=== PATIENT | male | born 1945 | race Caucasian/White ===

== ENCOUNTER 2021-08-14 19:16 | Emergency (ER) | payer OTHER ==
[2021-08-14 20:45] LABS: Urine Blood Trace-lysed (Negative); Urine Glucose Negative (Negative); Urine Protein Trace (Negative); Urine Specific Gravity >=1.030 (1.005-1.030); Urine pH 6.5 (5.0-7.0)
[2021-08-14] MEDS ORDERED: NA CHLORIDE 0.9% 2,000 ML ONE (22:04)
[2021-08-14 22:10] LABS: Absolute Lymphocytes (CBC) 1.4 K/uL (0.7-4.9); Basophils % 0.9 % (0-1.3); Hematocrit 41.2 % (39.6-49.0); Lymphocytes % 31.5 % (15.3-44.8); MPV 7.9 fL (7.6-11.3); Protime INR 1.03; RBC Red Blood Cell Count 4.65 M/uL (4.33-5.43)
[2021-08-14 22:21] LABS: ALT/SGPT 74 U/L (12-78); Alkaline Phosphatase 82 U/L (45-117); BUN Blood Urea Nitrogen 11 mg/dL (7-18); Bicarbonate 27 mmol/L (21-32); Bilirubin Direct < 0.1 mg/dL (0-0.2); Bilirubin Total 0.7 mg/dL (0.2-1.0); Glucose Level 111 mg/dL (74-106); NT PRO-BNP 102 pg/mL (<450); Protein, Total 5.9 g/dL (6.4-8.2); Sodium Level 137 mmol/L (136-145); Troponin (Emerg Dept Use Only) 0.03 ng/mL (0.0-0.045)
[2021-08-14 22:28] LABS: AST/SGOT 49 U/L (15-37); Potassium 3.7 mmol/L (3.5-5.1)
[2021-08-14 22:44] LABS: Blood Morphology Comment NOT SEEN (NOT SEEN); Platelet Estimate ADEQ; White Blood Cell Scan OK (OK)
--- NOTE | 2021-08-14 23:47 | ER ---
Nurse's Notes [facility] Name: Kota Stringer Age: 76 yrs Sex: Male : 1945 Arrival Date: 08/14/2021 Time: 19:32 Bed 14 Private MD: Diagnosis: Syncope Presentation: 08/14 19:33 Chief complaint: Patient states: syncope/diarrhea. Coronavirus screen: Vaccine status: df1 Patient reports receiving the 2nd dose of the covid vaccine. The client reports previous COVID testing was negative. Date of collection: July 2021. Ebola Screen: Patient negative for fever greater than or equal to 101.5 degrees Fahrenheit, and additional compatible Ebola Virus Disease symptoms Patient denies exposure to infectious person. Patient denies travel to an Ebola-affected area in the 21 days before illness onset. Initial Sepsis Screen: Does the patient meet any 2 criteria? No. Patient's initial sepsis screen is negative. Does the patient have a suspected source of infection? No. Patient's initial sepsis screen is negative. Risk Assessment: Do you want to hurt yourself or someone else? Patient reports no desire to harm self or others. Onset of symptoms was August 14, 2021. 19:33 Method Of Arrival: EMS: [facility] df1 19:33 Acuity: EDU 3 df1 19:44 Note Pt arrived EMS c/o syncope today. Was sitting on commode, denies falling. Also df1 diarrhea starting today. Pt recently released from hospital for complications of immunotherapy. 20:46 Note Spouse states pt finished Bactrim for UTI 3 days ago. df1 20:47 Note Pt straight cath for urine. Pt tolerated well. Approx 30 mls returned. df1 Historical: - Allergies: 19:35 PENICILLINS; df1 - Home Meds: 19:35 metoprolol succinate 50 mg oral Tb24 1 tab once daily [Active]; senna-docusate 8.6-50 df1 PO BID twice a day [Active]; aspirin 81 mg Oral chew 1 tab once daily [Active]; magnesium oxide 400 mg magnesium Oral cap 400 mg daily [Active]; Vitamin D3 25 mcg (1,000 unit) oral cap daily [Active]; - PMHx: 19:35 melanoma; adrenal cancer; irregular heart rate; pituitary cancer; immunotherapy; df1 - PSHx: 19:35 cardiac ablation; melanoma removal; df1 - Immunization history:: Adult Immunizations up to date, Client reports receiving the 2nd dose of the Covid vaccine. - Social history:: Smoking status: Patient denies any tobacco usage or history of. Screenin:11 Abuse screen: Denies threats or abuse. Nutritional screening: No deficits noted. df1 Tuberculosis screening: No symptoms or risk factors identified. Fall Risk IV access (20 points). Ambulatory Aid- None/Bed Rest/Nurse Assist (0 pts). Gait- Weak (10 pts.). Mental Status- Oriented to own ability (0 pts). Assessment: 20:06 General: Appears ill, Behavior is calm, cooperative, drowsy. Pain: Denies pain. Neuro: df1 Reports a syncopal episode weakness in generalized weakness. Respiratory: Airway is patent Respiratory effort is even, unlabored, Breath sounds are clear bilaterally. GI: Bowel sounds present X 4 quads. Reports diarrhea. : No deficits noted. EENT: No deficits noted. Musculoskeletal: No deficits noted. Vital Signs: 19:33 BP 123 / 87; Pulse 86; Resp 18; Temp 98.1; Pulse Ox 98% on R/A; Weight 77.11 kg; Height df1 5 ft. 9 in. (175.26 cm); Pain 0/10; 20:02 BP 128 / 67; Pulse 88; Resp 18; Pulse Ox 98% on R/A; df1 20:52 BP 122 / 71; Pulse 81; Resp 18; Pulse Ox 97% on R/A; df1 21:58 BP 124 / 71; Pulse 82; Resp 18; Pulse Ox 99% on R/A; df1 23:27 BP 132 / 64; Pulse 78; Resp 18; Pulse Ox 98% ; df1 23:57 BP 141 / 71; Pulse 84; Resp 18; Pulse Ox 99% on R/A; df1 19:33 Body Mass Index 25.10 (77.11 kg, 175.26 cm) df1 ED Course: 19:32 Patient arrived in ED. df1 19:35 Triage completed. df1 20:02 Emelyn Rader is Primary Nurse. df1 20:11 Patient has correct armband on for positive identification. Placed in gown. Bed in low df1 position. Call light in reach. Side rails up X 1. 20:12 Arm band placed on right wrist. Emesis basin given. df1 20:47 Inserted saline lock: 20 gauge in right forearm, using aseptic technique. df1 21:18 Uriel Olivas MD is Attending Physician. pkl 21:52 Lactate Sent. sj1 21:54 Basic Metabolic Panel Sent. df1 21:54 XRAY Chest (1 view) Sent. df1 22:06 XRAY Chest (1 view) In Process Unspecified. EDMS 22:41 CT Head Brain wo Cont In Process Unspecified. EDMS 08/15 00:36 No provider procedures requiring assistance completed. IV discontinued, intact. df1 Administered Medications: 08/14 21:39 Drug: NS 0.9% 1000 ml Route: IV; Rate: 125 ml/hr; Site: right forearm; sj1 21:39 Drug: NS 0.9% 1000 ml Route: IV; Rate: 1000 ml; Site: right forearm; sj1 Outcome: 23:46 Discharge ordered by . pkl 08/15 00:36 Discharged to home via wheelchair. df1 Condition: stable Discharge instructions given to patient, family, Instructed on discharge instructions, follow up and referral plans. Demonstrated understanding of instructions, follow-up care. 00:37 Patient left the ED. df1 Signatures: Dispatcher [employer] EDNC Uriel Olivas MD MD pkl Emelyn Rader df1 Mamta Palm, RN RN sj1 Corrections: (The following items were deleted from the chart) 08/14 20:46 19:35 Home Meds: pantoprazole 40 mg oral TbEC 1 tab once daily; df1 df1
--- NOTE | 2021-08-14 23:47 | EDPHYS ---
Physician Documentation [facility] Name: Kota Stringer Age: 76 yrs Sex: Male : 1945 Arrival Date: 08/14/2021 Time: 19:32 Bed 14 Private MD: ED Physician Uriel Olivas HPI: 08/14 21:36 This 76 yrs old Male presents to ER via EMS with unknown complaint. pkl 21:36 The patient has experienced syncope, became unresponsive. Onset: The symptoms/episode pkl began/occurred just prior to arrival. Associated injury: The patient did not suffer any apparent associated injury. Associated signs and symptoms: Pertinent positives: weakness. Historical: - Allergies: 19:35 PENICILLINS; df1 - Home Meds: 19:35 metoprolol succinate 50 mg oral Tb24 1 tab once daily [Active]; senna-docusate 8.6-50 df1 PO BID twice a day [Active]; aspirin 81 mg Oral chew 1 tab once daily [Active]; magnesium oxide 400 mg magnesium Oral cap 400 mg daily [Active]; Vitamin D3 25 mcg (1,000 unit) oral cap daily [Active]; - PMHx: 19:35 melanoma; adrenal cancer; irregular heart rate; pituitary cancer; immunotherapy; df1 - PSHx: 19:35 cardiac ablation; melanoma removal; df1 - Immunization history:: Adult Immunizations up to date, Client reports receiving the 2nd dose of the Covid vaccine. - Social history:: Smoking status: Patient denies any tobacco usage or history of. ROS: 21:41 Eyes: Negative for injury, pain, redness, and discharge, ENT: Negative for injury, pkl pain, and discharge, Neck: Negative for injury, pain, and swelling, Cardiovascular: Negative for chest pain, palpitations, and edema, Respiratory: Negative for shortness of breath, cough, wheezing, and pleuritic chest pain. 21:41 Abdomen/GI: Positive for diarrhea. 21:41 Back: Negative for acute changes. 21:41 : Negative for urinary symptoms. 21:41 MS/extremity: Negative for acute changes, injury or acute deformity. 21:41 Skin: Negative for rash. 21:41 Neuro: Positive for syncope. Exam: 21:41 Abdomen/GI: Bowel sounds: normal, Palpation: abdomen is soft and non-tender, in all pkl quadrants. 21:41 Head/Face: Normocephalic, atraumatic. Eyes: Pupils equal round and reactive to light, extra-ocular motions intact. Lids and lashes normal. Conjunctiva and sclera are non-icteric and not injected. Cornea within normal limits. Periorbital areas with no swelling, redness, or edema. ENT: Nares patent. No nasal discharge, no septal abnormalities noted. Tympanic membranes are normal and external auditory canals are clear. Oropharynx with no redness, swelling, or masses, exudates, or evidence of obstruction, uvula midline. Mucous membranes moist. Neck: Trachea midline, no thyromegaly or masses palpated, and no cervical lymphadenopathy. Supple, full range of motion without nuchal rigidity, or vertebral point tenderness. No Meningismus. Chest/axilla: Normal chest wall appearance and motion. Nontender with no deformity. No lesions are appreciated. Cardiovascular: Regular rate and rhythm with a normal S1 and S2. No gallops, murmurs, or rubs. Normal PMI, no JVD. No pulse deficits. Respiratory: Lungs have equal breath sounds bilaterally, clear to auscultation and percussion. No rales, rhonchi or wheezes noted. No increased work of breathing, no retractions or nasal flaring. Abdomen/GI: Soft, non-tender, with normal bowel sounds. No distension or tympany. No guarding or rebound. No evidence of tenderness throughout. Back: No spinal tenderness. No costovertebral tenderness. Full range of motion. Skin: Warm, dry with normal turgor. Normal color with no rashes, no lesions, and no evidence of cellulitis. MS/ Extremity: Pulses equal, no cyanosis. Neurovascular intact. Full, normal range of motion. Neuro: Awake and alert, GCS 15, oriented to person, place, time, and situation. Cranial nerves II-XII grossly intact. Motor strength 5/5 in all extremities. Sensory grossly intact. Cerebellar exam normal. Normal gait. Vital Signs: 19:33 BP 123 / 87; Pulse 86; Resp 18; Temp 98.1; Pulse Ox 98% on R/A; Weight 77.11 kg; Height df1 5 ft. 9 in. (175.26 cm); Pain 0/10; 20:02 BP 128 / 67; Pulse 88; Resp 18; Pulse Ox 98% on R/A; df1 20:52 BP 122 / 71; Pulse 81; Resp 18; Pulse Ox 97% on R/A; df1 21:58 BP 124 / 71; Pulse 82; Resp 18; Pulse Ox 99% on R/A; df1 23:27 BP 132 / 64; Pulse 78; Resp 18; Pulse Ox 98% ; df1 23:57 BP 141 / 71; Pulse 84; Resp 18; Pulse Ox 99% on R/A; df1 19:33 Body Mass Index 25.10 (77.11 kg, 175.26 cm) df1 MDM: 21:18 Patient medically screened. pkl 23:41 Data reviewed: vital signs, nurses notes, lab test result(s), EKG, radiologic studies, pkl CT scan, plain films. ED course: Patient feeling better. Discussed lab, EKG and imaging studies with patient. Advised to follow up with PCP in 2 to 3 days. Return if necessary. Patient understood instruction. 08/14 20:45 Order name: Urine Dipstick-Ancillary; Complete Time: 23:34 EDMS 08/14 21:27 Order name: Basic Metabolic Panel pkl 08/14 21:27 Order name: CBC with Diff; Complete Time: 23:34 pkl 08/14 21:27 Order name: LFT's; Complete Time: 23:34 pkl 08/14 21:27 Order name: Magnesium; Complete Time: 23:34 pkl 08/14 21:27 Order name: NT PRO-BNP; Complete Time: 23:34 pkl 08/14 21:27 Order name: PT-INR; Complete Time: 23:34 pkl 08/14 21:27 Order name: Troponin (emerg Dept Use Only); Complete Time: 23:34 pkl 08/14 21:27 Order name: XRAY Chest (1 view) pkl 08/14 21:28 Order name: Basic Metabolic Panel; Complete Time: 23:34 EDMS 08/14 21:29 Order name: Lactate; Complete Time: 23:34 pkl 08/14 21:32 Order name: CT Head Brain wo Cont pkl 08/14 22:16 Order name: CBC Smear Scan; Complete Time: 23:34 EDMS 08/14 20:53 Order name: Urine Dipstick-Ancillary (obtain specimen); Complete Time: 20:53 df1 08/14 21:27 Order name: EKG; Complete Time: 21:28 pkl 08/14 21:27 Order name: Cardiac monitoring; Complete Time: 21:54 pkl 08/14 21:27 Order name: EKG - Nurse/Tech; Complete Time: 21:54 pkl 08/14 21:27 Order name: IV Saline Lock; Complete Time: 21:54 pkl 08/14 21:27 Order name: Labs collected and sent; Complete Time: 21:54 pkl 08/14 21:27 Order name: O2 Per Protocol; Complete Time: 21:54 pkl 08/14 21:27 Order name: O2 Sat Monitoring; Complete Time: 21:54 pkl Administered Medications: 21:39 Drug: NS 0.9% 1000 ml Route: IV; Rate: 125 ml/hr; Site: right forearm; sj1 21:39 Drug: NS 0.9% 1000 ml Route: IV; Rate: 1000 ml; Site: right forearm; sj1 Disposition Summary: 08/14/21 23:46 Discharge Ordered Location: Home pkl Problem: new pkl Symptoms: have improved pkl Condition: Stable pkl Diagnosis - Syncope pkl Followup: pkl - With: Private Physician - When: 2 - 3 days - Reason: Re-evaluation by your physician Forms: - Medication Reconciliation Form pkl - Thank You Letter pkl - Antibiotic Education pkl - Prescription Opioid Use pkl Signatures: Dispatcher [employer] EDUriel Hubbard MD MD pkl Emelyn Rader df1 Mamta aPlm RN RN sj1 Corrections: (The following items were deleted from the chart) 20:46 19:35 Home Meds: pantoprazole 40 mg oral TbEC 1 tab once daily; df1 df1
[2021-08-15 00:41] VITALS: TEMP 98.1
[2021-08-15 00:48] VITALS: BP 141/71; O2SAT 99
--- NOTE | 2021-08-15 11:52 | RAD REPORT ---
EXAM DESCRIPTION: RAD - Chest Single View - 08/14/2021 10:05 pm CLINICAL HISTORY: syncope Chest pain. COMPARISON: No comparisons FINDINGS: Portable technique limits examination quality. Small bilateral pleural effusions are seen. Subtle interstitial opacities slightly greater on the rig ht may indicate mild infection or pulmonary edema. The heart is normal in size. No displaced fracture s.
--- NOTE | 2021-08-15 22:48 | RAD REPORT ---
EXAM DESCRIPTION: CT Head/Brain Without Contrast CLINICAL HISTORY: Syncope, hypertension COMPARISON: None. TECHNIQUE: Head/brain axial images acquired without contrast. Coronal and sagittal reformats created . Exam performed according to departmental dose-optimization program which includes automated exposur e control, adjustment of mA and/or kV according to patient size, and/or use of iterative reconstructi on technique. FINDINGS: No midline shift, mass effect, intracranial hemorrhage, or hydrocephalus. CSF spaces appear overall mildly enlarged likely representing age-appropriate cerebral volume loss. Small right frontal sinus osteoma. Mastoid air cells clear. No skull fracture or significant skull lesion. Calcified atherosclerotic intracranial internal carotid and vertebral arteries. IMPRESSION: No CT evidence of acute intracranial abnormality. Electronically signed by: Buster Ponce MD 08/14/2021 11:46 PM CDT Due to temporary technical issues with the PACS/Fluency reporting system, reports are being signed by the in house radiologists without review as a courtesy to insure prompt reporting. The interpreting radiologist is fully responsible for the content of the report.
== END 2021-08-15 00:37 | disposition home or self-care (01) ==
LOC: ER 19:16
DX: R55 Syncope and collapse (principal); Z88.0 Allergy status to penicillin
CPT/HCPCS: 93005; 85025; 80048; 36415; 83735; 85610; 80076; 83605; 81003; 84484; 83880; 70450; 71045; 99284; J7030

== ENCOUNTER 2021-08-20 17:00 | Emergency (ER) | payer OTHER ==
[2021-08-20 18:11] LABS: Urine Blood 1+ (Negative); Urine Glucose Negative (Negative); Urine Protein Negative (Negative)
--- NOTE | 2021-08-20 19:38 | ER ---
Nurse's Notes [facility] Name: Kota Stringer Age: 76 yrs Sex: Male : 1945 Arrival Date: 08/20/2021 Time: 17:04 Bed 26 Private MD: Diagnosis: UTI/ Urinary tract infection, site not specified;Dysuria Presentation: 08/20 17:36 Chief complaint: Patient states: he has pain on the end of his penis. patient states ap3 pain is constant. Pain began yesterday 08/19/2021. Coronavirus screen: At this time, the client does not indicate any symptoms associated with coronavirus-19. Ebola Screen: No symptoms or risks identified at this time. Initial Sepsis Screen: Does the patient meet any 2 criteria? No. Patient's initial sepsis screen is negative. Does the patient have a suspected source of infection? No. Patient's initial sepsis screen is negative. Risk Assessment: Do you want to hurt yourself or someone else? Patient reports no desire to harm self or others. Onset of symptoms was August 19, 2021. 17:36 Method Of Arrival: Ambulatory ap3 17:36 Acuity: EDU 3 ap3 Triage Assessment: 17:40 General: Appears in no apparent distress. Behavior is calm, cooperative. Pain: ap3 Complains of pain in head of penis Pain currently is 6 out of 10 on a pain scale. Quality of pain is described as burning. Neuro: Level of Consciousness is awake, alert, obeys commands, Oriented to person, place, time, situation, Speech is normal. Cardiovascular: Patient's skin is warm and dry. Respiratory: Airway is patent. : Reports pain with urination, and constant pain on the head of the penis. Denies discharge. Historical: - Allergies: 17:39 PENICILLINS; ap3 - Home Meds: 17:39 metoprolol succinate 50 mg Oral Tb24 1 tab once daily [Active]; ap3 - PMHx: 17:39 adrenal cancer; immunotherapy; Irregular heart rate; melanoma; pituitary cancer; ap3 - PSHx: 17:39 Cardiac Ablation; melanoma removal; ap3 - Immunization history:: Client reports receiving the 2nd dose of the Covid vaccine. - Social history:: Smoking status: Patient denies any tobacco usage or history of. Screenin:41 Abuse screen: Denies threats or abuse. Nutritional screening: No deficits noted. ap3 Tuberculosis screening: No symptoms or risk factors identified. 18:14 Fall Risk None identified. ld1 Assessment: 18:14 General: Appears in no apparent distress. uncomfortable, Behavior is calm, cooperative, ld1 appropriate for age. Pain: Complains of pain in groin Pain does not radiate. Pain currently is 6 out of 10 on a pain scale. at worst was 8 out of 10 on a pain scale. Quality of pain is described as burning, throbbing, Pain began 2-3 days ago. Is continuous. Neuro: Level of Consciousness is awake, alert, obeys commands, Oriented to person, place, time, situation. Cardiovascular: Capillary refill < 3 seconds Patient's skin is warm and dry. Respiratory: Airway is patent Respiratory effort is even, unlabored, Respiratory pattern is regular, symmetrical. GI: Abdomen is flat, non-distended. : Reports burning with urination, inability to void, pain urgency. EENT: No signs and/or symptoms were reported regarding the EENT system. Derm: No signs and/or symptoms reported regarding the dermatologic system. Musculoskeletal: No signs and/or symptoms reported regarding the musculoskeletal system. 19:20 General: Appears uncomfortable, Behavior is calm, cooperative. General: Bladder scan ld1 completed with 324 ml residual reported 2 hours post void.. Pain: Complains of pain in head of penis Pain currently is 7 out of 10 on a pain scale. 19:30 Reassessment: No changes from previously documented assessment. Voided 325 ml slightly ld1 cloudy urine; meds given as ordered; drinking water with no n/v. Vital Signs: 17:36 BP 134 / 86 RA Sitting (auto/reg); Pulse 83; Resp 19; Temp 98.5(TE); Pulse Ox 100% on ap3 R/A; Weight 75.3 kg; Height 5 ft. 9 in. (175.26 cm); Pain 6/10; 18:14 BP 146 / 72; Pulse 84; Resp 18; Pulse Ox 100% on R/A; Pain 6/10; ld1 19:40 BP 151 / 79; Pulse 78; Resp 18; Temp 97.7; Pulse Ox 100% on R/A; ld1 17:36 Body Mass Index 24.51 (75.30 kg, 175.26 cm) ap3 ED Course: 17:04 Patient arrived in ED. mr 17:39 Triage completed. ap3 17:42 Arm band placed on right wrist. ap3 17:52 Jareth Bello MD is Attending Physician. whitney 18:10 Urine Culture Sent. ld1 18:14 Patient has correct armband on for positive identification. Placed in gown. Bed in low ld1 position. Call light in reach. Side rails up X2. Pulse ox on. NIBP on. Door closed. Noise minimized. Warm blanket given. 18:14 No provider procedures requiring assistance completed. ld1 19:25 Felicia Villegas, RN is Primary Nurse. ld1 19:37 Ladarius Foster MD is Referral Physician. [facility] 19:40 Patient did not have IV access during this emergency room visit. ld1 Administered Medications: 19:30 Drug: Cipro (ciprofloxacin) 500 mg Route: PO; ld1 19:40 Follow up: Response: No adverse reaction ld1 19:30 Drug: [place] (HYDROcodone-acetaminophen) 10 mg-325 mg 1 tabs Route: PO; ld1 19:40 Follow up: Urine output 325 ml; Response: No adverse reaction ld1 19:30 Drug: Flomax (tamsulosin) 0.4 mg Route: PO; ld1 19:40 Follow up: Response: No adverse reaction ld1 Output: 19:40 Urine: 325ml; Total: 325ml. ld1 Outcome: 19:37 Discharge ordered by . [facility] 19:40 Discharged to home via wheelchair. ld1 19:40 Condition: stable 19:40 Discharge instructions given to patient, significant other, Instructed on discharge instructions, follow up and referral plans. medication usage, Demonstrated understanding of instructions, follow-up care, medications, Prescriptions given X 3. 20:06 Patient left the ED. ld1 Signatures: Jareth Bello MD MD cha Rivera, Kim LantiguaYana RN RN ap3 Felicia Villegas, NATE RN ld1
--- NOTE | 2021-08-20 19:38 | EDPHYS ---
Physician Documentation [facility] Name: Kota Stringer Age: 76 yrs Sex: Male : 1945 Arrival Date: 08/20/2021 Time: 17:04 Bed 26 Private MD: ARON Physician Jareth Bello HPI: 08/20 19:06 This 76 yrs old Male presents to ER via Ambulatory with complaints of Urinary whitney Problem. 19:06 The patient presents with urinary symptoms, dysuria, urinary frequency. Onset: The whitney symptoms/episode began/occurred 2 day(s) ago. Modifying factors: The symptoms are alleviated by nothing, the symptoms are aggravated by urinating. Associated signs and symptoms: The patient has no apparent associated signs or symptoms. Severity of symptoms: At their worst the symptoms were mild, in the emergency department the symptoms are unchanged. The patient has experienced similar episodes in the past, a few times. Historical: - Allergies: 17:39 PENICILLINS; ap3 - Home Meds: 17:39 metoprolol succinate 50 mg Oral Tb24 1 tab once daily [Active]; ap3 - PMHx: 17:39 adrenal cancer; immunotherapy; Irregular heart rate; melanoma; pituitary cancer; ap3 - PSHx: 17:39 Cardiac Ablation; melanoma removal; ap3 - Immunization history:: Client reports receiving the 2nd dose of the Covid vaccine. - Social history:: Smoking status: Patient denies any tobacco usage or history of. ROS: 19:07 Constitutional: Negative for fever, chills, and weight loss, Eyes: Negative for injury, whitney pain, redness, and discharge, ENT: Negative for injury, pain, and discharge, Neck: Negative for injury, pain, and swelling, Cardiovascular: Negative for chest pain, palpitations, and edema, Respiratory: Negative for shortness of breath, cough, wheezing, and pleuritic chest pain, Abdomen/GI: Negative for abdominal pain, nausea, vomiting, diarrhea, and constipation, Back: Negative for injury and pain, MS/Extremity: Negative for injury and deformity, Skin: Negative for injury, rash, and discoloration, Neuro: Negative for headache, weakness, numbness, tingling, and seizure, Psych: Negative for depression, anxiety, suicide ideation, homicidal ideation, and hallucinations, Allergy/Immunology: Negative for hives, rash, and allergies, Endocrine: Negative for neck swelling, polydipsia, polyuria, polyphagia, and marked weight changes, Hematologic/Lymphatic: Negative for swollen nodes, abnormal bleeding, and unusual bruising. 19:07 : Positive for urinary symptoms, urinary frequency, small amounts, hematuria, burning with urination, difficulty urinating. Exam: 19:07 Constitutional: This is a well developed, well nourished patient who is awake, alert, whitney and in no acute distress. Head/Face: Normocephalic, atraumatic. Eyes: Pupils equal round and reactive to light, extra-ocular motions intact. Lids and lashes normal. Conjunctiva and sclera are non-icteric and not injected. Cornea within normal limits. Periorbital areas with no swelling, redness, or edema. ENT: Nares patent. No nasal discharge, no septal abnormalities noted. Tympanic membranes are normal and external auditory canals are clear. Oropharynx with no redness, swelling, or masses, exudates, or evidence of obstruction, uvula midline. Mucous membranes moist. Neck: Trachea midline, no thyromegaly or masses palpated, and no cervical lymphadenopathy. Supple, full range of motion without nuchal rigidity, or vertebral point tenderness. No Meningismus. Chest/axilla: Normal chest wall appearance and motion. Nontender with no deformity. No lesions are appreciated. Cardiovascular: Regular rate and rhythm with a normal S1 and S2. No gallops, murmurs, or rubs. Normal PMI, no JVD. No pulse deficits. Respiratory: Lungs have equal breath sounds bilaterally, clear to auscultation and percussion. No rales, rhonchi or wheezes noted. No increased work of breathing, no retractions or nasal flaring. Abdomen/GI: Soft, non-tender, with normal bowel sounds. No distension or tympany. No guarding or rebound. No evidence of tenderness throughout. Back: No spinal tenderness. No costovertebral tenderness. Full range of motion. Skin: Warm, dry with normal turgor. Normal color with no rashes, no lesions, and no evidence of cellulitis. MS/ Extremity: Pulses equal, no cyanosis. Neurovascular intact. Full, normal range of motion. Neuro: Awake and alert, GCS 15, oriented to person, place, time, and situation. Cranial nerves II-XII grossly intact. Motor strength 5/5 in all extremities. Sensory grossly intact. Cerebellar exam normal. Normal gait. Psych: Awake, alert, with orientation to person, place and time. Behavior, mood, and affect are within normal limits. 19:07 : CVA tenderness, is absent, Male external genitalia: normal, Bladder: is normal, Sexual behavior: the patient is not sexually active. Vital Signs: 17:36 BP 134 / 86 RA Sitting (auto/reg); Pulse 83; Resp 19; Temp 98.5(TE); Pulse Ox 100% on ap3 R/A; Weight 75.3 kg; Height 5 ft. 9 in. (175.26 cm); Pain 6/10; 18:14 BP 146 / 72; Pulse 84; Resp 18; Pulse Ox 100% on R/A; Pain 6/10; ld1 19:40 BP 151 / 79; Pulse 78; Resp 18; Temp 97.7; Pulse Ox 100% on R/A; ld1 17:36 Body Mass Index 24.51 (75.30 kg, 175.26 cm) ap3 MDM: 17:52 Patient medically screened. [facility] 19:13 Data reviewed: vital signs, nurses notes, lab test result(s), urinalysis, bacteruria. [facility] 08/20 17:53 Order name: Urine Culture [facility] 08/20 18:10 Order name: Urine Dipstick-Ancillary; Complete Time: 18:57 [facility] 08/20 17:53 Order name: Urine Dipstick-Ancillary (obtain specimen); Complete Time: 18:10 [facility] 08/20 19:05 Order name: PO challenge; Complete Time: 19:34 [facility] 08/20 19:05 Order name: Bladder Scanner; Complete Time: 19:34 [facility] Administered Medications: 19:30 Drug: Cipro (ciprofloxacin) 500 mg Route: PO; ld1 19:40 Follow up: Response: No adverse reaction ld1 19:30 Drug: [place] (HYDROcodone-acetaminophen) 10 mg-325 mg 1 tabs Route: PO; ld1 19:40 Follow up: Urine output 325 ml; Response: No adverse reaction ld1 19:30 Drug: Flomax (tamsulosin) 0.4 mg Route: PO; ld1 19:40 Follow up: Response: No adverse reaction ld1 Disposition Summary: 08/20/21 19:37 Discharge Ordered Location: Home [facility] Problem: new [facility] Symptoms: have improved [facility] Condition: Stable [facility] Diagnosis - UTI/ Urinary tract infection, site not specified [facility] - Dysuria [facility] Followup: whitney - With: Private Physician - When: 2 - 3 days - Reason: Recheck today's complaints, Continuance of care, Re-evaluation by your physician Followup: whitney - With: - When: 2 - 3 days - Reason: Recheck today's complaints, Re-evaluation by your physician Discharge Instructions: - Discharge Summary Sheet [facility] - Dysuria [facility] - Urinary Tract Infection, Adult [facility] - Urinary Tract Infection, Adult, [id number] [facility] Forms: - Medication Reconciliation Form [facility] - Thank You Letter [facility] - Antibiotic Education [facility] - Prescription Opioid Use [facility] Prescriptions: - tamsulosin 0.4 mg Oral capsule - take 1 capsule by ORAL route once daily 1/2 hour following the same meal each [facility] day; 20 capsule; Refills: 0, Product Selection Permitted - Cipro 250 mg Oral Tablet - take 1 tablet by ORAL route every 12 hours; 20 tablet; Refills: 0, Product [facility] Selection Permitted - Tylenol-Codeine #3 300 mg-30 mg Oral - take 2 tablet by ORAL route every 6 hours; 15 tablet; Refills: 0, Product [facility] Selection Permitted Signatures: Dispatcher [employer] Jareth Houser MD MD cha Prokisch, Amanda RN RN ap3 Felicia Villegas RN RN ld1
[2021-08-20] MEDS ORDERED: CIPROFLOXACIN HCL 500 MG TAB ONE (19:53)
[2021-08-20] MEDS ORDERED: TAMSULOSIN 0.4 MG SR CAP ONE (19:54)
[2021-08-20] MEDS ORDERED: HYDROCODONE/APAP 10/325 TAB ONE (19:55)
[2021-08-20 20:10] VITALS: O2SAT 100
[2021-08-20 20:13] VITALS: BP 151/79; TEMP 97.7
== END 2021-08-20 20:06 | disposition home or self-care (01) ==
LOC: ER 17:00
DX: N39.0 Urinary tract infection, site not specified (principal); Z88.0 Allergy status to penicillin; Z85.89 Personal history of malignant neoplasm of other organs and systems
CPT/HCPCS: 81003; 87077; 87086; 87088; 87186; 99284

== ENCOUNTER 2021-08-24 18:34 | Emergency (ER) | payer OTHER ==
[2021-08-24 20:30] LABS: Basophils % 0.9 % (0-1.3); Hematocrit 38.5 % (39.6-49.0); MPV 7.4 fL (7.6-11.3); RBC Red Blood Cell Count 4.39 M/uL (4.33-5.43)
[2021-08-24 20:31] LABS: ALT/SGPT 55 U/L (12-78); AST/SGOT 47 U/L (15-37); Alkaline Phosphatase 73 U/L (45-117); BUN Blood Urea Nitrogen 5 mg/dL (7-18); Bicarbonate 30 mmol/L (21-32); Bilirubin Direct 0.2 mg/dL (0-0.2); Creatine Phosphokinase 522 U/L (39-308); Glucose Level 103 mg/dL (74-106); Magnesium 1.7 mg/dL (1.8-2.4); NT PRO-BNP 165 pg/mL (<450); Potassium 3.4 mmol/L (3.5-5.1); Protime INR 1.12; Sodium Level 136 mmol/L (136-145); Troponin (Emerg Dept Use Only) 0.02 ng/mL (0.0-0.045)
[2021-08-24 20:58] LABS: Urine Blood Negative (Negative); Urine Glucose Negative (Negative); Urine Protein Negative (Negative)
--- NOTE | 2021-08-24 21:19 | RAD REPORT ---
EXAM DESCRIPTION: CT - CTHCSPWOC - 08/24/2021 8:59 pm CLINICAL HISTORY: fall;Pain COMPARISON: No comparisons TECHNIQUE: Axial 5 mm thick images of the head were obtained. Axial 2 mm thick images of the cervic al spine were obtained with sagittal and coronal reconstruction images generated and reviewed. All CT scans are performed using dose optimization technique as appropriate and may include automated exposure control or mA/KV adjustment according to patient size. FINDINGS: No intracranial hemorrhage, mass, edema or acute intracranial finding. No suspicion for ac [place] infarction. No cortical edema or sulcal effacement seen. Mild to moderate atrophy is present mild chronic ischemic change. Ventricles are in proportion. Dense arterial tree calcifications are presen t. Mastoid air cells and paranasal sinuses are clear. No globe or orbit abnormality seen. Cervical body height and alignment are normal. C5-6 disc space narrowing present. Endplate spurring c hanges are present multiple levels. Prominent facet joint degenerative changes are present. Uncoverte bral joint hypertrophy causes mild bilateral bony foraminal stenosis at C3-4. C4-5 and C5-6 bony fora aaron stenosis also present. No fracture or acute bony abnormality. Central canal detail is inherent ly limited. No paraspinal mass or hematoma. IMPRESSION: Negative CT head examination for acute finding. Negative CT cervical spine examination for acute finding. Prominent cervical spine degenerative wang ges are present as detailed.
--- NOTE | 2021-08-24 21:23 | RAD REPORT ---
EXAM DESCRIPTION: CT - Abdomen Pelvis W Contrast - 08/24/2021 9:03 pm CLINICAL HISTORY: Constipation;Abd pain COMPARISON: No comparisons TECHNIQUE: Biphasic, helical CT imaging of the abdomen and pelvis was performed following 100 ml non -ionic IV contrast. No oral contrast administered. All CT scans are performed using dose optimization technique as appropriate and may include automated exposure control or mA/KV adjustment according to patient size. FINDINGS: No suspicious findings in the lung bases. The liver, spleen, and pancreas show no suspicious findings. Gallbladder and biliary tree are also wi thout suspicious finding. There is marked dilatation of the pelvis and moderately severe dilatation of the calices of the right collecting system. Right ureter is not dilated. 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 Strictu re at the UPJ is possible. No obstructing calculi. Renal parenchymal enhancement pattern is symmetric indicating no significant obstruction from the UPJ finding. No left-sided hydronephrosis. No pyelone phritis or acute parenchymal process. Partially filled urinary bladder shows no acute finding. No adr enal abnormalities. No dilated bowel loops or bowel wall thickening. Appendix is normal. Prominent diverticulosis is pres ent. There is distention of the rectum by retained stool. No free air, free fluid or inflammatory stranding. No hernia, mass or bulky lymphadenopathy. Bony degenerative changes are present. No acute bone finding identified. IMPRESSION: Contrast enhanced CT abdomen and pelvis showing no acute or emergent finding. Patient has pronounced dilatation of the pelvis and calices on the right with no ureter dilatation. 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
[2021-08-24 21:24] LABS: Urine Bacteria <20 /HPF (NONE SEEN); Urine RBC NONE SEEN /HPF (NONE SEEN)
[2021-08-24] MEDS ORDERED: NA CHLORIDE 0.9% 500 ML ONE ×2 (21:25→22:43)
--- NOTE | 2021-08-24 21:30 | RAD REPORT ---
EXAM DESCRIPTION: RAD - Chest Single View - 08/24/2021 8:56 pm CLINICAL HISTORY: general weakness COMPARISON: Portable August 14 TECHNIQUE: AP portable chest image was obtained 08/24/2021 8:56 pm . FINDINGS: Lungs are clear. Atelectasis present in each lung base. Lung parenchymal findings are not significantly different from comparison. Heart and vasculature are normal. No measurable pleural effu jose and no pneumothorax. No acute bony abnormality seen. No acute aortic findings suspected. IMPRESSION: No acute cardiopulmonary process. No significant change from comparison study.
[2021-08-24 22:19] LABS: Blood Morphology Comment NOT SEEN (NOT SEEN); Platelet Estimate ADEQ
[2021-08-24] MEDS ORDERED: POTASSIUM 25 MEQ EFFERV TAB ONE (22:26)
[2021-08-24] MEDS ORDERED: Magnesium Sulfate 2gm IVPB 2 G/50 ML BAG IV ONE (22:26)
--- NOTE | 2021-08-24 23:14 | ER ---
Nurse's Notes [facility] Name: Kota Stringer Age: 76 yrs Sex: Male : 1945 Arrival Date: 08/24/2021 Time: 18:36 Bed 15 Private MD: Diagnosis: Fall on same level, unspecified;Cervicalgia;Constipation Presentation: 08/24 18:52 Chief complaint: Patient states: "I am constipated, so my was wheeling me out to ld1 the car and my feet go caught up and I fell out of the wheelchair and hit my head." Denies LOC, denies taking blood thinners. Coronavirus screen: At this time, the client does not indicate any symptoms associated with coronavirus-19. Ebola Screen: No symptoms or risks identified at this time. Initial Sepsis Screen: Does the patient meet any 2 criteria? No. Patient's initial sepsis screen is negative. Does the patient have a suspected source of infection? No. Patient's initial sepsis screen is negative. Risk Assessment: Do you want to hurt yourself or someone else? Patient reports no desire to harm self or others. Onset of symptoms was August 24, 2021. 18:52 Method Of Arrival: Wheelchair ld1 18:52 Acuity: EDU 3 ld1 Triage Assessment: 18:54 General: Appears in no apparent distress. uncomfortable, Behavior is calm, cooperative, ld1 appropriate for age. Pain: Complains of pain in occipital area Pain does not radiate. Pain currently is 10 out of 10 on a pain scale. Quality of pain is described as throbbing, Pain began 1 hour ago. Is continuous. Pain:. EENT: No signs and/or symptoms were reported regarding the EENT system. Neuro: Level of Consciousness is awake, alert, obeys commands, Oriented to person, place, time, situation. Cardiovascular: Capillary refill < 3 seconds Patient's skin is warm and dry. Respiratory: Airway is patent Respiratory effort is even, unlabored, Respiratory pattern is regular, symmetrical. GI: Abdomen is flat, non-distended, Reports constipation. : No signs and/or symptoms were reported regarding the genitourinary system. Derm: No signs and/or symptoms reported regarding the dermatologic system. Musculoskeletal: No signs and/or symptoms reported regarding the musculoskeletal system. Historical: - Allergies: 18:54 PENICILLINS; ld1 - Home Meds: 18:54 metoprolol succinate 50 mg Oral Tb24 1 tab once daily [Active]; ld1 - PMHx: 18:54 adrenal cancer; immunotherapy; Irregular heart rate; melanoma; pituitary cancer; ld1 - PSHx: 18:54 Cardiac Ablation; melanoma removal; ld1 - Immunization history:: Adult Immunizations up to date, Client reports receiving the 2nd dose of the Covid vaccine. - Social history:: Smoking status: Patient denies any tobacco usage or history of. Screenin:23 Abuse screen: Denies threats or abuse. Denies injuries from another. Nutritional ms4 screening: No deficits noted. Tuberculosis screening: No symptoms or risk factors identified. Fall Risk Fall in past 12 months (25 points). No secondary diagnosis (0 pts). No IV (0 pts). Ambulatory Aid- Crutches/Cane/Walker (15 pts). Gait- Normal/Bed Rest/Wheelchair (0 pts) Mental Status- Oriented to own ability (0 pts). Total Busby Fall Scale indicates Low Risk Score (25-44 pts). Fall prevention measures have been instituted. Placed close to Nursing Station. Assessment: 19:21 Reassessment: Patient appears in no apparent distress at this time. No changes from ms4 previously documented assessment. Patient and/or family updated on plan of care and expected duration. Pain level reassessed. Patient is alert, oriented x 3, equal unlabored respirations, skin warm/dry/pink. General: Appears in no apparent distress. Behavior is calm, cooperative, appropriate for age. Pain: Complains of pain in scalp and occipital area. Neuro: No deficits noted. Cardiovascular: No deficits noted. Respiratory: No deficits noted. GI: Bowel sounds present X 4 quads. Abd is soft and non tender X 4 quads. Parent/caregiver reports the patient having constipation. 19:24 Reassessment: c-collar placed on patient due to patient c/o neck pain. ms4 22:54 Reassessment: Patient appears in no apparent distress at this time. No changes from ms4 previously documented assessment. Patient and/or family updated on plan of care and expected duration. Pain level reassessed. Patient is alert, oriented x 3, equal unlabored respirations, skin warm/dry/pink. Vital Signs: 18:52 BP 139 / 87; Pulse 100; Resp 18; Temp 98.3(O); Pulse Ox 97% on R/A; Weight 73.94 kg; ld1 Height 5 ft. 9 in. (175.26 cm); Pain 10/10; 20:04 BP 150 / 87; Pulse 89; Resp 16; Pulse Ox 98% on R/A; Pain 0/10; ms4 22:52 BP 158 / 91; Pulse 89; Resp 18; Temp 98.1(O); Pulse Ox 98% on R/A; Pain 0/10; ms4 23:29 BP 147 / 89; Pulse 80; Resp 18; Pulse Ox 98% ; Pain 0/10; ms4 18:52 Body Mass Index 24.07 (73.94 kg, 175.26 cm) ld1 ED Course: 18:36 Patient arrived in ED. ds1 18:54 Triage completed. ld1 18:54 Arm band placed on right wrist. ld1 18:58 Jareth Bryant PA is PHCP. cp 18:58 Derek Linares MD is Attending Physician. cp 19:24 No provider procedures requiring assistance completed. ms4 20:01 Basic Metabolic Panel Sent. ms4 20:01 CBC with Automated Diff Sent. ms4 20:01 Liver (Hepatic) Function Sent. ms4 20:01 CK Sent. ms4 20:01 Blood Culture Adult (2) Sent. ms4 20:01 Procalcitonin Sent. ms4 20:01 Lactate Sent. ms4 20:01 Basic Metabolic Panel Sent. ms4 20:01 CBC with Diff Sent. ms4 20:01 LFT's Sent. ms4 20:01 Magnesium Sent. ms4 20:02 NT PRO-BNP Sent. ms4 20:02 PT-INR Sent. ms4 20:02 Troponin (emerg Dept Use Only) Sent. ms4 20:10 Inserted saline lock: 20 gauge in right antecubital area, using aseptic technique. ms4 Blood collected. 20:56 XRAY Chest (1 view) In Process Unspecified. EDMS 20:59 CT Head C Spine In Process Unspecified. EDMS 21:03 CT Abd/Pelvis - IV Contrast Only In Process Unspecified. EDMS 21:52 Jareth Bello MD is Attending Physician. cp 23:29 Patient has correct armband on for positive identification. ms4 23:29 IV discontinued, intact, bleeding controlled. ms4 Administered Medications: 21:18 Drug: NS 0.9% 500 ml Route: IV; Rate: 500 ml/hr; Site: right antecubital; ms4 22:16 Drug: Magnesium Sulfate 1 grams Route: IVPB; Infused Over: 1 hrs; Site: right ms4 antecubital; 22:16 Drug: Potassium Effervescent Tablet 50 mEq Route: PO; ms4 22:17 Drug: NS 0.9% 500 ml Route: IV; Rate: bolus; Site: right antecubital; ms4 Outcome: 23:13 Discharge ordered by . cp 23:29 Discharged to home via wheelchair. ms4 23:29 Condition: stable 23:29 Discharge instructions given to patient, Instructed on discharge instructions, follow up and referral plans. Demonstrated understanding of instructions, follow-up care, medications, Prescriptions given X 1. 23:30 Patient left the ED. ms4 Signatures: Dispatcher [employer] EDID Kira Garcia ds1 Jareth Bryant PA PA cp Felicia Villegas RN RN ld1 Francesca Donato RN RN ms4
--- NOTE | 2021-08-24 23:14 | EDPHYS ---
Physician Documentation [facility] Name: Kota Stringer Age: 76 yrs Sex: Male : 1945 Arrival Date: 08/24/2021 Time: 18:36 Bed 15 Private MD: ED Physician Jareth [facility]ello HPI: 08/24 19:35 This 76 yrs old Male presents to ER via Wheelchair with complaints of cp Constipation, Fall Injury. 19:35 The patient presents with abdominal pain that is diffuse, constipation. Onset: The cp symptoms/episode began/occurred today, reports last bowel movement was 6 days ago. Associated signs and symptoms: Pertinent negatives: blood in stools, chest pain, shortness of breath, vomiting. 19:35 reports patient sustained fall while sitting on walker causing him to strike back cp of head on grassy surface. Patient was attempted to get into vehicle to come to ED to be seen for constipation. reports patient has had increasing general weakness. Patient has history of stage 4 melanoma and was unable to do immunotherapy treatment due to allergic reaction. Patient is being treated at [facility]. Historical: - Allergies: 18:54 PENICILLINS; ld1 - Home Meds: 18:54 metoprolol succinate 50 mg Oral Tb24 1 tab once daily [Active]; ld1 - PMHx: 18:54 adrenal cancer; immunotherapy; Irregular heart rate; melanoma; pituitary cancer; ld1 - PSHx: 18:54 Cardiac Ablation; melanoma removal; ld1 - Immunization history:: Adult Immunizations up to date, Client reports receiving the 2nd dose of the Covid vaccine. - Social history:: Smoking status: Patient denies any tobacco usage or history of. ROS: 19:40 Constitutional: Negative for body aches, chills, fever, poor PO intake. cp 19:40 Eyes: Negative for injury, pain, redness, and discharge. cp 19:40 ENT: Negative for ear pain, sore throat, difficulty swallowing, difficulty handling secretions. 19:40 Neck: Positive for pain with movement, tenderness. 19:40 Cardiovascular: Negative for chest pain, edema, palpitations. 19:40 Respiratory: Negative for cough, shortness of breath, wheezing. 19:40 Abdomen/GI: Positive for abdominal pain, constipation, Negative for vomiting, diarrhea, black/tarry stool, rectal bleeding. 19:40 Back: Negative for pain at rest, pain with movement. 19:40 : Negative for urinary symptoms. 19:40 Neuro: Positive for general weakness, Negative for altered mental status, dizziness, headache, loss of consciousness, syncope. 19:40 All other systems are negative. Exam: 19:45 Constitutional: The patient appears in no acute distress, alert, awake, cp non-diaphoretic, non-toxic, well developed, well nourished. 19:45 Head/Face: Normocephalic, atraumatic. cp 19:45 Eyes: Periorbital structures: appear normal, Pupils: equal, round, and reactive to light and accomodation, Extraocular movements: intact throughout, Conjunctiva: normal, no exudate, no injection, Sclera: no appreciated abnormality, Lids and lashes: appear normal, bilaterally. 19:45 ENT: External ear(s): are unremarkable, Nose: is normal, Mouth: Lips: moist, Oral mucosa: pink and intact, moist, Posterior pharynx: Airway: no evidence of obstruction, patent. 19:45 Neck: C-spine: C-collar placed in ED, vertebral tenderness, that is mild, appreciated at C6 and C7, crepitus, is not appreciated. 19:45 Chest/axilla: Inspection: normal, Palpation: is normal, no crepitus, no tenderness. 19:45 Cardiovascular: Rate: tachycardic, Rhythm: regular, Edema: is not appreciated, JVD: is not appreciated. 19:45 Respiratory: the patient does not display signs of respiratory distress, Respirations: normal, no use of accessory muscles, no retractions, labored breathing, is not present, Breath sounds: are clear throughout, no decreased breath sounds, no stridor, no wheezing. 19:45 Abdomen/GI: Inspection: abdomen appears normal, Bowel sounds: active, all quadrants, Palpation: soft, in all quadrants, mild abdominal tenderness, in all quadrants, rebound tenderness, is not appreciated, voluntary guarding, is not appreciated, involuntary guarding, is not appreciated. 19:45 Back: vertebral tenderness, is not appreciated. 19:45 Musculoskeletal/extremity: Exam is negative for decreased range of motion, deformity, injury. 19:45 Neuro: Orientation: to person, place \T\ time. Mentation: is normal, Motor: moves all fours, strength is normal, Sensation: is normal. 20:02 ECG was reviewed by the Attending Physician. cp Vital Signs: 18:52 BP 139 / 87; Pulse 100; Resp 18; Temp 98.3(O); Pulse Ox 97% on R/A; Weight 73.94 kg; ld1 Height 5 ft. 9 in. (175.26 cm); Pain 10/10; 20:04 BP 150 / 87; Pulse 89; Resp 16; Pulse Ox 98% on R/A; Pain 0/10; ms4 22:52 BP 158 / 91; Pulse 89; Resp 18; Temp 98.1(O); Pulse Ox 98% on R/A; Pain 0/10; ms4 23:29 BP 147 / 89; Pulse 80; Resp 18; Pulse Ox 98% ; Pain 0/10; ms4 18:52 Body Mass Index 24.07 (73.94 kg, 175.26 cm) ld1 MDM: 19:04 Patient medically screened. cp 20:00 Differential diagnosis: closed head injury, contusion, fracture, laceration, multiple cp trauma. 23:12 Data reviewed: vital signs, nurses notes, lab test result(s), EKG, radiologic studies, cp CT scan, plain films. 23:12 Test interpretation: by ED physician or midlevel provider: ECG, plain radiologic cp studies. Counseling: I had a detailed discussion with the patient and/or guardian regarding: the historical points, exam findings, and any diagnostic results supporting the discharge/admit diagnosis, lab results, radiology results, the need for outpatient follow up, for definitive care, oncology, to return to the emergency department if symptoms worsen or persist or if there are any questions or concerns that arise at home. Response to treatment: the patient's symptoms have markedly improved after treatment, patient is well hydrated. VSS. Radiology studies negative for acute trauma. Patient reports symptoms improved. Will discharge to home for continued monitoring. 08/24 19:30 Order name: Basic Metabolic Panel cp 08/24 19:30 Order name: CBC with Diff cp 08/24 19:30 Order name: LFT's cp 08/24 19:30 Order name: Magnesium; Complete Time: 20:59 cp 08/24 20:59 Interpretation: Abnormal: MG 1.7. cp 08/24 19:30 Order name: NT PRO-BNP; Complete Time: 20:59 cp 08/24 19:30 Order name: PT-INR; Complete Time: 20:59 cp 08/24 22:30 Interpretation: Abnormal: PT 12.9; Reviewed. cp 08/24 19:30 Order name: Troponin (emerg Dept Use Only); Complete Time: 20:59 cp 08/24 19:30 Order name: Lactate; Complete Time: 20:59 cp 08/24 19:30 Order name: Urine Microscopic Only; Complete Time: 21:48 cp 08/24 22:30 Interpretation: Reviewed. cp 08/24 19:30 Order name: Procalcitonin; Complete Time: 20:59 cp 08/24 19:30 Order name: Blood Culture Adult (2) cp 08/24 19:30 Order name: CK; Complete Time: 20:59 cp 08/24 21:02 Interpretation: Abnormal: CPK 522. cp 08/24 19:30 Order name: Basic Metabolic Panel; Complete Time: 20:59 EDMS 08/24 20:59 Interpretation: Normal except: K 3.4; CL 97; BUN 5. cp 08/24 19:30 Order name: CBC with Automated Diff; Complete Time: 22:29 EDMS 08/24 21:02 Interpretation: Normal except: HGB 13.5; HCT 38.5; MPV 7.4; MN% 14.6. 08/24 19:30 Order name: CT Head C Spine; Complete Time: 21:48 cp 08/24 21:50 Interpretation: Reviewed report. 08/24 19:30 Order name: XRAY Chest (1 view); Complete Time: 21:48 08/24 21:50 Interpretation: Report review. cp 08/24 19:30 Order name: EKG; Complete Time: 19:31 cp 08/24 19:30 Order name: Cardiac monitoring; Complete Time: 19:46 cp 08/24 19:30 Order name: EKG - Nurse/Tech; Complete Time: 20:01 cp 08/24 19:30 Order name: IV Saline Lock; Complete Time: 19:46 cp 08/24 19:30 Order name: Labs collected and sent; Complete Time: 19:46 cp 08/24 19:30 Order name: O2 Per Protocol; Complete Time: 19:46 cp 08/24 19:30 Order name: CT Abd/Pelvis - IV Contrast Only; Complete Time: 21:48 cp 08/24 21:51 Interpretation: Report reviewed. cp 08/24 19:30 Order name: Liver (Hepatic) Function; Complete Time: 20:59 EDMS 08/24 21:02 Interpretation: Normal except: AST 47; TP 6.0; ALB 3.0; A/G 1.0. cp 08/24 20:36 Order name: Manual Differential; Complete Time: 22:29 EDMS 08/24 22:30 Interpretation: Reviewed. cp 08/24 20:58 Order name: Urine Dipstick-Ancillary; Complete Time: 20:59 EDMS 08/24 19:30 Order name: O2 Sat Monitoring; Complete Time: 19:46 cp 08/24 19:30 Order name: Urine Dipstick-Ancillary (obtain specimen); Complete Time: 20:54 cp EC:02 Rate is 89 beats/min. Rhythm is regular. MO interval is normal. QRS interval is cp prolonged at 118 msec. QT interval is normal. T waves are Inverted in leads III, aVR. Interpreted by me. Reviewed by me. Administered Medications: 21:18 Drug: NS 0.9% 500 ml Route: IV; Rate: 500 ml/hr; Site: right antecubital; ms4 22:16 Drug: Magnesium Sulfate 1 grams Route: IVPB; Infused Over: 1 hrs; Site: right ms4 antecubital; 22:16 Drug: Potassium Effervescent Tablet 50 mEq Route: PO; ms4 22:17 Drug: NS 0.9% 500 ml Route: IV; Rate: bolus; Site: right antecubital; ms4 Disposition Summary: 08/24/21 23:13 Discharge Ordered Location: Home cp Problem: new cp Symptoms: have improved cp Condition: Stable cp Diagnosis - Fall on same level, unspecified cp - Cervicalgia cp - Constipation cp Followup: cp - With: Private Physician - When: 2 - 3 days - Reason: Recheck today's complaints Discharge Instructions: - Discharge Summary Sheet cp - Constipation, Adult cp - Musculoskeletal Pain cp - Neck Exercises cp Forms: - Medication Reconciliation Form cp - Thank You Letter cp - Antibiotic Education cp - Prescription Opioid Use cp Prescriptions: - Miralax 17 gram Oral powder in packet - take 1 packet by ORAL route once daily As needed; 20 packet; Refills: 0, cp Product Selection Permitted Addendum: 08/26/2021 09:59 Co-signature as Attending Physician, Jareth [facility]ello MD I agree with the assessment and c nieves plan of care. Signatures: Dispatcher [employer] Jareth Houesr MD MD cha Page, Corey, PA PA cp Dibbern, Lauren, RN RN ld1 Francesca Donato RN RN ms4 Corrections: (The following items were deleted from the chart) 08/24 20:54 19:30 Evette waters. dilip ms4
[2021-08-24 23:38] VITALS: O2SAT 98
[2021-08-24 23:39] VITALS: TEMP 98.1
[2021-08-24 23:40] VITALS: BP 147/89
--- NOTE | 2021-08-25 16:44 | EKG ---
Test Date: 2021-08-24 Test Time: 19:56:28 Operator [employer]: MEASUREMENT RESULTS: Intervals: Rate: 89 [place]: 158 QRSD: 118 QT: 384 QTc: 467 Slaughter: P: 32 [place]: 158 QRS: -16 T: 3 INTERPRETIVE STATEMENTS: Normal sinus rhythm Incomplete right bundle branch block Nonspecific ST and T wave abnormality Prolonged QT Abnormal ECG Compared to ECG 08/14/2021 19:26:55 Incomplete right bundle-branch block now present ST (T wave) deviation now present Prolonged QT interval now present Atrial premature complex(es) no longer present Right bundle-branch block no longer present Electronically Signed On 08-25-21 16:41:10 CDT by Luis Coronel
== END 2021-08-24 23:30 | disposition home or self-care (01) ==
LOC: ER 18:34
DX: M54.2 Cervicalgia (principal); K59.00 Constipation, unspecified; W18.30XA Fall on same level, unspecified, initial encounter; Y93.89 Activity, other specified; Z85.89 Personal history of malignant neoplasm of other organs and systems; Z88.0 Allergy status to penicillin
CPT/HCPCS: 93005; 87040; 85025; 80048; 36415; 83735; 82550; 85610; 80076; 83605; 84484; 84145; 83880; 70450; 72125; 74177; 71045; 96374; 99284; Q9967; J3475; J7040 ×2; 81003; 81015

== ENCOUNTER 2023-04-13 08:28 | Day surgery (SDC) | payer OTHER ==
[2023-04-13] MEDS ORDERED: Ringers Lactate 1,000 ML IV ONE (08:52)
[2023-04-13] MEDS ORDERED: DEXMEDETOMIDINE HCL 200 MCG/2 ML VIAL ONE (10:24)
[2023-04-13] MEDS ORDERED: MIDAZOLAM HCL 2 MG/2 ML INJ ONE (10:28)
[2023-04-13] MEDS ORDERED: LIDOCAINE 1% MPF 30 ML VIAL ONE (10:30)
[2023-04-13] MEDS ORDERED: propofoL 200 MG/20 ML VIAL IV ONE (10:30)
[2023-04-13] MEDS ORDERED: GLUCAGON 1 MG/VIAL ONE (10:40)
[2023-04-13] MEDS ORDERED: GENTAMICIN SULF 80 MG/2ML INJ ONE (10:40)
[2023-04-13 11:53] VITALS: BP 113/62; TEMP 97; O2SAT 100
--- NOTE | 2023-04-13 13:14 | RAD REPORT ---
EXAM DESCRIPTION: RAD - Fluoroscopy <1 Hour - 04/13/2023 1:04 pm CLINICAL HISTORY: ERCP STENT REMOVAL COMPARISON: No comparisons FINDINGS: Fluoroscopy time: 156 seconds.
== END 2023-04-13 12:02 | disposition home or self-care (01) ==
LOC: OR 08:28
PROVIDERS: ATTEND Internal Medicine Gastroenterology
PROC: BF10YZZ Fluoroscopy of Bile Ducts using Other Contrast (ICD-10-PCS; 2023-04-13)
PROC: 0FPB8DZ Removal of Intraluminal Device from Hepatobiliary Duct, Via Natural or Artificial Opening Endoscopic (ICD-10-PCS; principal; 2023-04-13 10:45)
DX: K80.40 Calculus of bile duct with cholecystitis, unspecified, without obstruction (principal)
CPT/HCPCS: 88300; 43275; J1610; J2704; J2001; J1580; J7120; 76000; J2250

== ENCOUNTER 2024-04-03 15:38 | Emergency (ER) | payer OTHER ==
--- OUTSIDE RECORDS SUMMARY | 2024-04-03 15:44 | XMS REPORT | Continuity of Care Document ---
Author Name Unknown Address [address] [facility] [address] [place] [address] [facility] thconnect Address [address] [facility] [address] [place] [address] Care Team Providers Care Bowling Alley Attendant Name Role Phone Ann KERN, Lulu Primary Care Physic wendy SYSTEM, PROVIDER NOT IN Attending Clinician Unav ailable June Kent Attending Clinician Unavailable [id number] Attending Clinician Unavailable Niki Loja Anavella Attending Cli nician Unavailable DYLAN CORONADO Attending Clinician Unavailable RASHAWN NICOLE Attending Clinician Unavail able GHAZALA OCONNOR Attending Clinician Unavailable GO SALAS Attending Clinician UnavailWINNIE Brooks Attending Clinician Unavaila LIAM Lopez Attending Clinician Unavailable ALVAREZ WAHL Attending Clinician Unavailable MALU CRUZ Attending Clinician Unavailable MEG VERONICA Attending Clinician Unavailable DORINA MORRIS Attending Clinician Unavailable CHLOÉ SALDANA Attending Clinician Unavailable FABIEN DONNELLY Attending Clinician Unavaila ricardo Doctor Unassigned, [place] Attending Clinician U navailable PRATIBHA BILLS Attending Clinician UnavailVIANNEY Diaz Attending Clinician Unavailable CON PHAM Attending Clinician Un available REHANA, ROSA Attending Clinician Unavailable YOKO RENNER Attending Clinician Unavail able KADIE AHUJA Attending Clinician Unavailable MADDISON REDMOND Attending Clinician Unavailab ASHLEY Allred Attending Clinician Unavailable RASHAWN CANCHOLA Attending Clinician UnavailSAYDA Perales Attending Clinician Unavailable ONEL ASKEW Attending Clinician Unavailab RASHAWN Nogueira Attending Clinician Unavailab DEBORAH Wilkerson Attending Clinician UnavailDENEEN Villa Attending Clinician Unavailable GORDO CARCAMO Attending Clinician UnavailKETTY Ness Attending Clinician Unavailable [id number] Admitting Clinician Unavailable Edvin Loja Anav Admitting Clinician QUAN Hylton Admitting Clinician Unavailable RASHAWN NICOLE Admitting Clinician Unavail able Payers Payer Name Policy Type Policy Number Effective Date Expirati on Date Source [facility] [id number] AETM AETM [id number] [employer]ETNA MEDICARE PPO [id number] 2022 00:00:00 MEDICARE PART A AND B [id number] 2009 00:00:00 AETNA HMO [id number] 2000 00:00:00 AETNA [id number] [facility] Problems Condition Name Condition Details Condition Category Status Onset Date Resolution Date Last Treatment Date Treating Clinician Comments Source Vasovagal syncope Vasovagal syncope Disease Active 03-27 00:00: 00 [facility] Syncope Syncope Disease Active 03-27 00:00: 00 [facility] [id number] Decreased appetite Problem [facility] [id number] GERD without esophagiti s Problem [facility] [id number] Mild episode of recurrent major depressive disorder Problem [facility] [id number] Constipati on, unspecifie d constipati on type Problem [facility] [id number] 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 Problem [facility] [id number] Malignant melanoma of skin, unspecifie d Problem [facility] [id number] Mixed hyperlipid emia Problem [facility] [id number] Essential (primary) hypertensi on Problem [facility] Age-relate d osteoporos is Age-relate d osteoporos is without current pathologic al fracture Problem [facility] Allergies, Adverse Reactions, Alerts Allergy Name Allergy Type Status Severity Reaction(s) Onset Date Inactive Date Treating Clinician Comments Source [facility] Active Other 0 04-15 00:00: 00 [facility] Active Other 0 04-15 00:00: 00 [facility] Active Other 0 04-15 00:00: 00 Anderso [facility] Active Other 0 04-15 00:00: 00 Anderso [facility] Active Other 0 04-15 00:00: 00 Anderso [facility] Active Other 0 04-15 00:00: 00 Anderso n [facility] Active Other 0 04-15 00:00: 00 Anderso n [facility] Active Other 0 04-15 00:00: 00 Anderso [facility] Active Other 0 04-15 00:00: 00 Anderso [facility] Active Other 0 04-15 00:00: 00 Anderso n [facility] Active Other 0 04-15 00:00: 00 Anderso [facility] Active Other 0 04-15 00:00: 00 Anderso n [facility] Active Other 0 04-15 00:00: 00 Anderso n [facility] Active Other 0 04-15 00:00: 00 MD Anderso n [facility] Active Other 0 04-15 00:00: 00 MD Anderso n [facility] Active Other 0 04-15 00:00: 00 MD Anderso n [facility] Active Other 0 04-15 00:00: 00 MD Anderso n [facility] Active Other 0 04-15 00:00: 00 MD Anderso n [facility] Active Other 0 04-15 00:00: 00 MD Anderso n [facility] Active Other 0 6-09 00:00: 00 MD Anderso n [facility] Active Other 2023-0 6- 00:00: 00 MD Anderso n [facility] Active Other 2023-0 6- 00:00: 00 MD Anderso n [facility] Active Other 2023-0 6 00:00: 00 MD Anderso n [facility] Active Other 2023-0 6 00:00: 00 MD Anderso n [facility] Active Other 2023-0 6 00:00: 00 MD Anderso n [facility] Active Other 2023-0 6 00:00: 00 MD Anderso n [facility] Active Other 2023-0 6 00:00: 00 MD Anderso n [facility] Active Other 2023-0 6 00:00: 00 MD Anderso n [facility] Active Other 2023-0 6 00:00: 00 MD Anderso n [facility] Active Other 2023-0 6 00:00: 00 MD Anderso n [facility] Active Other 2023-0 6 00:00: 00 MD Anderso n [facility] Active Other 2023-0 6 00:00: 00 MD Anderso n [facility] Active Other 2023-0 6 00:00: 00 MD Anderso n [facility] Active Other 2023-0 6 00:00: 00 MD Anderso n [facility] Active Other 2023-0 6 00:00: 00 MD Anderso n [facility] Active Other 2023-0 6 00:00: 00 MD Anderso n [facility] Active Other 2023-0 6 00:00: 00 MD Anderso n [facility] Active Other 2023-0 6 00:00: 00 MD Anderso n [facility] Active Other 2023-0 6 00:00: 00 MD Anderso n [facility] Active Other 2023-0 6 00:00: 00 MD Anderso n [facility] Active Other 2023-0 6 00:00: 00 MD Anderso n [facility] Active Other 2023-0 6 00:00: 00 MD Anderso n [facility] Active Other 2023-0 6 00:00: 00 MD Anderso n [facility] Active Other 2023-0 6 00:00: 00 MD Anderso n [facility] Active Other 2023-0 6 00:00: 00 MD Anderso n [facility] Active Other 2023-0 6 00:00: 00 MD Anderso n [facility] Active Other 2023-0 6 00:00: 00 MD Anderso n [facility] Active Other 202-0 6 00:00: 00 MD Anderso n [facility] Active Other 2023-0 6 00:00: 00 MD Anderso n [facility] Active Other 2022-0 6 00:00: 00 MD Anderso n [facility] Active Other 2022-0 6 00:00: 00 MD Anderso n [facility] Active Other 2022-0 6 00:00: 00 MD Anderso n [facility] Active Other 2022-0 6 00:00: 00 MD Anderso n [facility] Active Other 202-0 6 00:00: 00 MD Anderso n [facility] Active Other 2022-0 6 00:00: 00 MD Anderso n [facility] Active Other 2022-0 6 00:00: 00 MD Anderso n [facility] Active Other 2023-0 6 00:00: 00 MD Anderso n [facility] Active Other 2022-0 6 00:00: 00 MD Anderso n [facility] Active Other 2023-0 6 00:00: 00 MD Anderso n [facility] Active Other 2023-0 6 00:00: 00 MD Anderso n [facility] Active Other 2023-0 6 00:00: 00 MD Anderso n [facility] Active Other 2023-0 - 00:00: 00 MD Anderso n [facility] Active Other 2023-0 6 00:00: 00 MD Anderso n [facility] Active Other 2023-0 6 00:00: 00 MD Anderso n [facility] Active Other 2023-0 6 00:00: 00 MD Anderso n [facility] Active Other 2023-0 6 00:00: 00 MD Anderso n [facility] Active Other 2023-0 6 00:00: 00 MD Anderso n [facility] Active Other 2023-0 6 00:00: 00 MD Anderso n [facility] Active Other 2023-0 6 00:00: 00 MD Anderso n [facility] Active Other 2023-0 6 00:00: 00 MD Anderso n [facility] Active Other 2023-0 6 00:00: 00 MD Anderso n [facility] Active Other 2023-0 6 00:00: 00 MD Anderso n [facility] Active Other 2023-0 6 00:00: 00 MD Anderso n [facility] Active Other 2023-0 6 00:00: 00 MD Anderso n [facility] Active Other 2023-0 6 00:00: 00 MD Anderso n [facility] Active Other 2023-0 6 00:00: 00 MD Anderso n [facility] Active Other 2023-0 6 00:00: 00 MD Anderso n [facility] Active Other 2023-0 6 00:00: 00 MD Anderso n [facility] Active Other 2023-0 6 00:00: 00 MD Anderso n [facility] Active Other 2023-0 6 00:00: 00 MD Anderso n [facility] Active Other 2023-0 6 00:00: 00 MD Anderso n [facility] Active Other 2023-0 6 00:00: 00 MD Anderso n [facility] Active Other 2023-0 6 00:00: 00 Androbina n [facility] Active Other 0 6 00:00: 00 Androbina n [facility] Active Other 0 6 00:00: 00 Androbina santo [facility] Active Other 0 6 00:00: 00 Androbina n [facility] Active Other 0 6 00:00: 00 Androbina n [facility] Active Other 0 04-15 00:00: 00 Androbina n [facility] Active Other 0 04-15 00:00: 00 Androbina n [facility] Active Other 0 04-15 00:00: 00 Androbina santo [facility] Active Other 0 04-15 00:00: 00 Andangyo n [facility] Active Other 0 04-15 00:00: 00 Androbina santo [facility] Active Other 0 04-15 00:00: 00 Androbina santo [facility] Propens[facility] ty to adverse reaction s Active Rash 2016-0 5-21 00:00: 00 Ha [facility] Active High Rash 2000-0 4-11 00:00: 00 Androbina n [facility] Active High Rash 2000-0 4-11 00:00: 00 Anderso n [facility] Active High Rash 2000-0 4-11 00:00: 00 Anderso n [facility] Active High Rash 2000-0 4-11 00:00: 00 Andangyo n [facility] Active High Rash 2000-0 4-11 00:00: 00 Anderso n [facility] Active High Rash 2000-0 4-11 00:00: 00 Anderso n [facility] Active High Rash 2000-0 4-11 00:00: 00 Andangyo n [facility] Active High Rash 2000-0 4-11 00:00: 00 Anderso n [facility] Active High Rash 2000-0 4-11 00:00: 00 Anderso n [facility] Active High Rash 2000-0 4-11 00:00: 00 Anderso n [facility] Active High Rash 2000-0 4-11 00:00: 00 Anderso n [facility] Active High Rash 2000-0 4-11 00:00: 00 Anderso n [facility] Active High Rash 2000-0 4-11 00:00: 00 Anderso n [facility] Active High Rash 2000-0 4-11 00:00: 00 Anderso n [facility] Active High Rash 2000-0 4-11 00:00: 00 Anderso n [facility] Active High Rash 2000-0 4-11 00:00: 00 Anderso n [facility] Active High Rash 2000-0 4-11 00:00: 00 Anderso n [facility] Active High Rash 2000-0 4-11 00:00: 00 Anderso n [facility] Active High Rash 2000-0 4-11 00:00: 00 Anderso n [facility] Active High Rash 2000-0 4-11 00:00: 00 Anderso n [facility] Active High Rash 2000-0 4-11 00:00: 00 Anderso n [facility] Active High Rash 2000-0 4-11 00:00: 00 Anderso n [facility] Active High Rash 2000-0 4-11 00:00: 00 Anderso n [facility] Active High Rash 2000-0 4-11 00:00: 00 Anderso n [facility] Active High Rash 2000-0 4-11 00:00: 00 Anderso n [facility] Active High Rash 2000-0 4-11 00:00: 00 Anderso n [facility] Active High Rash 2000-0 4-11 00:00: 00 Anderso n [facility] Active High Rash 2000-0 4-11 00:00: 00 Anderso n [facility] Active High Rash 2000-0 4-11 00:00: 00 Anderso n [facility] Active High Rash 2000-0 4-11 00:00: 00 Anderso n [facility] Active High Rash 2000-0 4-11 00:00: 00 Anderso n [facility] Active High Rash 2000-0 4-11 00:00: 00 Anderso n [facility] Active High Rash 2000-0 4-11 00:00: 00 Anderso n [facility] Active High Rash 2000-0 4-11 00:00: 00 Anderso n [facility] Active High Rash 2000-0 4-11 00:00: 00 Anderso n [facility] Active High Rash 2000-0 4-11 00:00: 00 Anderso n [facility] Active High Rash 2000-0 4-11 00:00: 00 Anderso n [facility] Active High Rash 2000-0 4-11 00:00: 00 Anderso n [facility] Active High Rash 2000-0 4-11 00:00: 00 Anderso n [facility] Active High Rash 2000-0 4-11 00:00: 00 Anderso n [facility] Active High Rash 2000-0 4-11 00:00: 00 Anderso n [facility] Active High Rash 2000-0 4-11 00:00: 00 Anderso n [facility] Active High Rash 2000-0 4-11 00:00: 00 Anderso n [facility] Active High Rash 2000-0 4-11 00:00: 00 Anderso n [facility] Active High Rash 2000-0 4-11 00:00: 00 Anderso n [facility] Active High Rash 2000-0 4-11 00:00: 00 Anderso n [facility] Active High Rash 2000-0 4-11 00:00: 00 Anderso n [facility] Active High Rash 2000-0 4-11 00:00: 00 Anderso n [facility] Active High Rash 2000-0 4-11 00:00: 00 Anderso n [facility] Active High Rash 2000-0 4-11 00:00: 00 Anderso n [facility] Active High Rash 2000-0 4-11 00:00: 00 Anderso n [facility] Active High Rash 2000-0 4-11 00:00: 00 Anderso n [facility] Active High Rash 2000-0 4-11 00:00: 00 Anderso n [facility] Active High Rash 2000-0 4-11 00:00: 00 Anderso n [facility] Active High Rash 2000-0 4-11 00:00: 00 Anderso n [facility] Active High Rash 2000-0 4-11 00:00: 00 Anderso n [facility] Active High Rash 2000-0 4-11 00:00: 00 Anderso n [facility] Active High Rash 2000-0 4-11 00:00: 00 Anderso n [facility] Active High Rash 2000-0 4-11 00:00: 00 Anderso n [facility] Active High Rash 2000-0 4-11 00:00: 00 Anderso n [facility] Active High Rash 2000-0 4-11 00:00: 00 Anderso n [facility] Active High Rash 2000-0 4-11 00:00: 00 Anderso n [facility] Active High Rash 2000-0 4-11 00:00: 00 Anderso n [facility] Active High Rash 2000-0 4-11 00:00: 00 Anderso n [facility] Active High Rash 2000-0 4-11 00:00: 00 Anderso n [facility] Active High Rash 2000-0 4-11 00:00: 00 Anderso n [facility] Active High Rash 2000-0 4-11 00:00: 00 Anderso n [facility] Active High Rash 2000-0 4-11 00:00: 00 Anderso n [facility] Active High Rash 2000-0 4-11 00:00: 00 Anderso n [facility] Active High Rash 2000-0 4-11 00:00: 00 Anderso n [facility] Active High Rash 2000-0 4-11 00:00: 00 Anderso n [facility] Active High Rash 2000-0 4-11 00:00: 00 Anderso n [facility] Active High Rash 2000-0 4-11 00:00: 00 Anderso n [facility] Active High Rash 2000-0 4-11 00:00: 00 Anderso n [facility] Active High Rash 2000-0 4-11 00:00: 00 Anderso n [facility] Active High Rash 2000-0 4-11 00:00: 00 Anderso n [facility] Active High Rash 2000-0 4-11 00:00: 00 Anderso n [facility] Active High Rash 2000-0 4-11 00:00: 00 Anderso n [facility] Active High Rash 2000-0 4-11 00:00: 00 Anderso n [facility] Active High Rash 2000-0 4-11 00:00: 00 Anderso n [facility] Active High Rash 2000-0 4-11 00:00: 00 Anderso n [facility] Active High Rash 2000-0 4-11 00:00: 00 Anderso n [facility] Active High Rash 2000-0 4-11 00:00: 00 Anderso n [facility] Active High Rash 2000-0 4-11 00:00: 00 Anderso n [facility] Active High Rash 2000-0 4-11 00:00: 00 Anderso n [facility] Active High Rash 2000-0 4-11 00:00: 00 Anderso n [facility] Active High Rash 2000-0 4-11 00:00: 00 Anderso n [facility] Active High Rash 2000-0 4-11 00:00: 00 Anderso n [facility] Active High Rash 2000-0 4-11 00:00: 00 Anderso n [facility] Active High Rash 2000-0 4-11 00:00: 00 Anderso n [facility] Active High Rash 2000-0 4-11 00:00: 00 Anderso n [facility] Active High Rash 2000-0 4-11 00:00: 00 Anderso n [facility] Active High Rash 2000-0 4-11 00:00: 00 Anderso n [facility] Active High Rash 2000-0 4-11 00:00: 00 Anderso n [facility] Active High Rash 2000-0 4-11 00:00: 00 Anderso n [facility] Active High Rash 2000-0 4-11 00:00: 00 Anderso n [facility] Active High Rash 2000-0 4-11 00:00: 00 Anderso n [facility] Active High Rash 2000-0 4-11 00:00: 00 Anderso n [facility] Class Active High Rash 2000-0 4-11 00:00: 00 Anderso n [facility] Class Active High Rash 2000-0 4-11 00:00: 00 Anderso n [facility] Class Active High Rash 2000-0 4-11 00:00: 00 Anderso n [facility] Active High Rash 2000-0 4-11 00:00: 00 Anderso n [facility] Active High Rash 2000-0 4-11 00:00: 00 Anderso n [facility] Active High Rash 2000-0 4-11 00:00: 00 Anderso n [facility] Active High Rash 2000-0 4-11 00:00: 00 Anderso n [facility] Active High Rash 2000-0 4-11 00:00: 00 Anderso n [facility] Active High Rash 2000-0 4-11 00:00: 00 Anderso n [facility] Active High Rash 2000-0 4-11 00:00: 00 Anderso n [facility] Active High Rash 2000-0 4-11 00:00: 00 Anderso n [facility] Active High Rash 2000-0 4-11 00:00: 00 Anderso n [facility] Active High Rash 2000-0 4-11 00:00: 00 Anderso n [facility] Active High Rash 2000-0 4-11 00:00: 00 Anderso n [facility] Active High Rash 2000-0 4-11 00:00: 00 Anderso n [facility] Class Active High Rash 2000-0 4-11 00:00: 00 Anderso n [facility] Active High Rash 2000-0 4-11 00:00: 00 Anderso n [facility] Active High Rash 2000-0 4-11 00:00: 00 Anderso n [facility] Active High Rash 2000-0 4-11 00:00: 00 Anderso n [facility] Active High Rash 2000-0 4-11 00:00: 00 Anderso n [facility] Active High Rash 2000-0 4-11 00:00: 00 Anderso n [facility] Active High Rash 2000-0 4-11 00:00: 00 Anderso n [facility] Active High Rash 2000-0 4-11 00:00: 00 Anderso n [facility] Class Active High Rash 2000-0 4-11 00:00: 00 Anderso n [facility] Active High Rash 2000-0 4-11 00:00: 00 Anderso n [facility] Active High Rash 2000-0 4-11 00:00: 00 Anderso n [facility] Active High Rash 2000-0 4-11 00:00: 00 Anderso n [facility] Active High Rash 2000-0 4-11 00:00: 00 Anderso n [facility] Active High Rash 2000-0 4-11 00:00: 00 Anderso n [facility] Active High Rash 2000-0 4-11 00:00: 00 Anderso n [facility] Active High Rash 2000-0 4-11 00:00: 00 Anderso n [facility] Active High Rash 2000-0 4-11 00:00: 00 Anderso n [facility] Active High Rash 2000-0 4-11 00:00: 00 Anderso n [facility] Class Active High Rash 2000-0 4-11 00:00: 00 Anderso n [facility] Active High Rash 2000-0 4-11 00:00: 00 Anderso n [facility] Active High Rash 2000-0 4-11 00:00: 00 Anderso n [facility] Active High Rash 2000-0 4-11 00:00: 00 Anderso n [facility] Class Active High Rash 2000-0 4-11 00:00: 00 Anderso n [facility] Active High Rash 2000-0 4-11 00:00: 00 Anderso n [facility] Class Active High Rash 2000-0 4-11 00:00: 00 Anderso n [facility] Class Active High Rash 2000-0 4-11 00:00: 00 Anderso n [facility] Active High Rash 2000-0 4-11 00:00: 00 Anderso n [facility] Class Active High Rash 2000-0 4-11 00:00: 00 Anderso n [facility] Class Active High Rash 2000-0 4-11 00:00: 00 Anderso n [facility] Class Active High Rash 2000-0 4-11 00:00: 00 Anderso n [facility] Class Active High Rash 2000-0 4-11 00:00: 00 Anderso n [facility] Class Active High Rash 2000-0 4-11 00:00: 00 Anderso n [facility] Class Active High Rash 2000-0 4-11 00:00: 00 Anderso n [facility] Class Active High Rash 2000-0 4-11 00:00: 00 Anderso n [facility] Class Active High Rash 2000-0 4-11 00:00: 00 Anderso n [facility] Class Active High Rash 2000-0 4-11 00:00: 00 Anderso n [facility] Class Active High Rash 2000-0 4-11 00:00: 00 Anderso n [facility] Class Active High Rash 2000-0 4-11 00:00: 00 Anderso n [facility] Class Active High Rash 2000-0 4-11 00:00: 00 Anderso n [facility] Class Active High Rash 2000-0 4-11 00:00: 00 Anderso n [facility] Class Active High Rash 2000-0 4-11 00:00: 00 Anderso n [facility] Class Active High Rash 2000-0 4-11 00:00: 00 Anderso n [facility] Class Active High Rash 2000-0 4-11 00:00: 00 Anderso n [facility] Class Active High Rash 2000-0 4-11 00:00: 00 Anderso n [facility] Class Active High Rash 2000-0 4-11 00:00: 00 Anderso n [facility] Class Active High Rash 2000-0 4-11 00:00: 00 Anderso n [facility] Class Active High Rash 2000-0 4-11 00:00: 00 Anderso n [facility] Class Active High Rash 2000-0 4-11 00:00: 00 Anderso n [facility] Class Active High Rash 2000-0 4-11 00:00: 00 Anderso n [facility] Class Active High Rash 2000-0 4-11 00:00: 00 Anderso n [facility] Class Active High Rash 2000-0 4-11 00:00: 00 Anderso n [facility] Class Active High Rash 2000-0 4-11 00:00: 00 Anderso n [facility] Class Active High Rash 2000-0 4-11 00:00: 00 Anderso n [facility] Class Active High Rash 2000-0 4-11 00:00: 00 Anderso n [facility] Class Active High Rash 2000-0 4-11 00:00: 00 Anderso n [facility] Class Active High Rash 2000-0 4-11 00:00: 00 Anderso n [facility] Class Active High Rash 2000-0 4-11 00:00: 00 Anderso n [facility] Class Active High Rash 2000-0 4-11 00:00: 00 Anderso n [facility] Class Active High Rash 2000-0 4-11 00:00: 00 Anderso n [facility] Class Active High Rash 2000-0 4-11 00:00: 00 Anderso n [facility] Class Active High Rash 2000-0 4-11 00:00: 00 Anderso n [facility] Class Active High Rash 2000-0 4-11 00:00: 00 Anderso n [facility] Class Active High Rash 2000-0 4-11 00:00: 00 Anderso n [facility] Class Active High Rash 2000-0 4-11 00:00: 00 Anderso n [facility] Class Active High Rash 2000-0 4-11 00:00: 00 Anderso n [facility] Class Active High Rash 2000-0 4-11 00:00: 00 Anderso n [facility] Class Active High Rash 2000-0 4-11 00:00: 00 Anderso n [facility] Class Active High Rash 2000-0 4-11 00:00: 00 Anderso n [facility] Class Active High Rash 2000-0 4-11 00:00: 00 Anderso n [facility] Class Active High Rash 2000-0 4-11 00:00: 00 MD Anderso n [facility] Class Active High Rash 1999-0 4-11 00:00: 00 MD Toyin santo [facility] Class Active High Rash 0 411 00:00: 00 MD Toyin santo [facility] Active High Rash 1999-0 4-11 00:00: 00 MD Toyin santo [facility] Active High Rash 0 4-11 00:00: 00 MD Toyin santo [id number] Drug allergy Active Unknown [facility] Social History Social Habit Start Date Stop Date Quantity Comments Source History of Tobacco Use [facility] Sex Assigned At [facility] Tobacco Comment 2016-03-27 00:00:00 2016-03-27 00:00:00 Second hand smoke [facility] Smoking Status Start Date Stop Date Source Never Smoker [facility] Medications Ordered Medication Name Filled Medication Name Start Date Stop Date Current Medication? Ordering Clinician Indication Dosage Frequency Signature (SIG) Comments Components Source Paxlovid (300/100) 20 x 150 MG & 10 x 100MG Paxlovid (300/100) 20 x 150 MG & 10 x 100MG 2024-0 1-16 00:00: 00 No BID Paxlovid (300/100) 20 x 150 MG & 10 x 100MG Paxlovid (300/100) 20 x 150 MG & 10 x 100MG Paxlovid (300/100) 20 x 150 MG & 10 x 100MG 2024-0 1-16 00:00: 00 No BID Paxlovid (300/100) 20 x 150 MG & 10 x 100MG Paxlovid (300/100) 20 x 150 MG & 10 x 100MG Paxlovid (300/100) 20 x 150 MG & 10 x 100MG 2024-0 1-16 00:00: 00 No BID Paxlovid (300/100) 20 x 150 MG & 10 x 100MG Paxlovid (300/100) 20 x 150 MG & 10 x 100MG Paxlovid (300/100) 20 x 150 MG & 10 x 100MG 2024-0 1-16 00:00: 00 No BID Paxlovid (300/100) 20 x 150 MG & 10 x 100MG esomeprazol e (NEXIUM) 40 mg packet 03-29 15:55: 34 Yes 40mg Take 40 mg by mouth daily with breakfast. [facility] hydrochloro thiazide (ESIDRIX) 25 mg tablet 03-29 15:55: 34 Yes 25mg Take 25 mg by mouth daily. [facility] atorvastati n (LIPITOR) 40 mg tablet 03-29 15:55: 34 Yes 40mg Take 40 mg by mouth at bedtime. [facility] metoprolol succinate XL (TOPROL XL) 25 mg 24 hr tablet 03-29 15:55: 34 Yes 50mg Take 50 mg by mouth daily. [facility] aspirin 81 mg chewable tablet 03-29 15:55: 34 Yes 81mg Take 81 mg by mouth daily. [facility] Senna 8.6 MG Senna 8.6 MG No 2{table ts_at_b edtime_ as_need ed} QD Senna 8.6 MG Docusate Sodium 100 MG Docusate Sodium 100 MG No Docusate Sodium 100 MG Pantoprazol e Sodium 40 MG Pantoprazol e Sodium 40 MG No QD Pantoprazo le Sodium 40 MG Metoprolol Succinate ER 50 MG Metoprolol Succinate ER 50 MG No 1{table t} QD Metoprolol Succinate ER 50 MG Cholecalcif ashlee 25 MCG (1000 UT) Cholecalcif ashlee 25 MCG (1000 UT) No 2{capsu les} QD Cholecalci ferol 25 MCG (1000 UT) Praluent 75 MG/ML Praluent 75 MG/ML No Praluent 75 MG/ML Aspirin Low Dose 81 MG Aspirin Low Dose 81 MG No Aspirin Low Dose 81 MG MAGnesium-O xide 400 (240 Mg) MG MAGnesium-O xide 400 (240 Mg) MG No MAGnesium- Oxide 400 (240 Mg) MG Senna 8.6 MG Senna 8.6 MG No 2{table ts_at_b edtime_ as_need ed} QD Senna 8.6 MG Docusate Sodium 100 MG Docusate Sodium 100 MG No Docusate Sodium 100 MG Pantoprazol e Sodium 40 MG Pantoprazol e Sodium 40 MG No QD Pantoprazo le Sodium 40 MG Metoprolol Succinate ER 50 MG Metoprolol Succinate ER 50 MG No 1{table t} QD Metoprolol Succinate ER 50 MG Cholecalcif ashlee 25 MCG (1000 UT) Cholecalcif ashlee 25 MCG (1000 UT) No 2{capsu les} QD Cholecalci ferol 25 MCG (1000 UT) Praluent 75 MG/ML Praluent 75 MG/ML No Praluent 75 MG/ML Aspirin Low Dose 81 MG Aspirin Low Dose 81 MG No Aspirin Low Dose 81 MG MAGnesium-O xide 400 (240 Mg) MG MAGnesium-O xide 400 (240 Mg) MG No MAGnesium- Oxide 400 (240 Mg) MG Senna 8.6 MG Senna 8.6 MG No 2{table ts_at_b edtime_ as_need ed} QD Senna 8.6 MG Docusate Sodium 100 MG Docusate Sodium 100 MG No Docusate Sodium 100 MG Pantoprazol e Sodium 40 MG Pantoprazol e Sodium 40 MG No QD Pantoprazo le Sodium 40 MG Metoprolol Succinate ER 50 MG Metoprolol Succinate ER 50 MG No 1{table t} QD Metoprolol Succinate ER 50 MG Cholecalcif ashlee 25 MCG (1000 UT) Cholecalcif ashlee 25 MCG (1000 UT) No 2{capsu les} QD Cholecalci ferol 25 MCG (1000 UT) Praluent 75 MG/ML Praluent 75 MG/ML No Praluent 75 MG/ML Aspirin Low Dose 81 MG Aspirin Low Dose 81 MG No Aspirin Low Dose 81 MG MAGnesium-O xide 400 (240 Mg) MG MAGnesium-O xide 400 (240 Mg) MG No MAGnesium- Oxide 400 (240 Mg) MG Senna 8.6 MG Senna 8.6 MG No 2{table ts_at_b edtime_ as_need ed} QD Senna 8.6 MG Docusate Sodium 100 MG Docusate Sodium 100 MG No Docusate Sodium 100 MG Pantoprazol e Sodium 40 MG Pantoprazol e Sodium 40 MG No QD Pantoprazo le Sodium 40 MG Metoprolol Succinate ER 50 MG Metoprolol Succinate ER 50 MG No 1{table t} QD Metoprolol Succinate ER 50 MG Cholecalcif ashlee 25 MCG (1000 UT) Cholecalcif ashlee 25 MCG (1000 UT) No 2{capsu les} QD Cholecalci ferol 25 MCG (1000 UT) Praluent 75 MG/ML Praluent 75 MG/ML No Praluent 75 MG/ML Aspirin Low Dose 81 MG Aspirin Low Dose 81 MG No Aspirin Low Dose 81 MG MAGnesium-O xide 400 (240 Mg) MG MAGnesium-O xide 400 (240 Mg) MG No MAGnesium- Oxide 400 (240 Mg) MG Senna 8.6 MG Senna 8.6 MG No 2{table ts_at_b edtime_ as_need ed} QD Senna 8.6 MG Docusate Sodium 100 MG Docusate Sodium 100 MG No Docusate Sodium 100 MG Pantoprazol e Sodium 40 MG Pantoprazol e Sodium 40 MG No QD Pantoprazo le Sodium 40 MG Metoprolol Succinate ER 50 MG Metoprolol Succinate ER 50 MG No 1{table t} QD Metoprolol Succinate ER 50 MG Cholecalcif ashlee 25 MCG (1000 UT) Cholecalcif ashlee 25 MCG (1000 UT) No 2{capsu les} QD Cholecalci ferol 25 MCG (1000 UT) Praluent 75 MG/ML Praluent 75 MG/ML No Praluent 75 MG/ML Aspirin Low Dose 81 MG Aspirin Low Dose 81 MG No Aspirin Low Dose 81 MG MAGnesium-O xide 400 (240 Mg) MG MAGnesium-O xide 400 (240 Mg) MG No MAGnesium- Oxide 400 (240 Mg) MG Metoprolol Succinate ER 50 MG Metoprolol Succinate ER 50 MG No 1{table t} BID Metoprolol Succinate ER 50 MG Praluent 75 MG/ML Praluent 75 MG/ML No Praluent 75 MG/ML Senna 8.6 MG Senna 8.6 MG No 2{table ts_at_b edtime_ as_need ed} QD Senna 8.6 MG Aspirin Low Dose 81 MG Aspirin Low Dose 81 MG No Aspirin Low Dose 81 MG Cholecalcif ashlee 25 MCG (1000 UT) Cholecalcif ashlee 25 MCG (1000 UT) No 2{capsu les} QD Cholecalci ferol 25 MCG (1000 UT) Docusate Sodium 100 MG Docusate Sodium 100 MG No Docusate Sodium 100 MG MAGnesium-O xide 400 (240 Mg) MG MAGnesium-O xide 400 (240 Mg) MG No MAGnesium- Oxide 400 (240 Mg) MG Pantoprazol e Sodium 40 MG Pantoprazol e Sodium 40 MG No 1{table t} QD Pantoprazo le Sodium 40 MG Metoprolol Succinate ER 50 MG Metoprolol Succinate ER 50 MG No 1{table t} BID Metoprolol Succinate ER 50 MG Praluent 75 MG/ML Praluent 75 MG/ML No Praluent 75 MG/ML Senna 8.6 MG Senna 8.6 MG No 2{table ts_at_b edtime_ as_need ed} QD Senna 8.6 MG Aspirin Low Dose 81 MG Aspirin Low Dose 81 MG No Aspirin Low Dose 81 MG Cholecalcif ashlee 25 MCG (1000 UT) Cholecalcif ashlee 25 MCG (1000 UT) No 2{capsu les} QD Cholecalci ferol 25 MCG (1000 UT) Docusate Sodium 100 MG Docusate Sodium 100 MG No Docusate Sodium 100 MG MAGnesium-O xide 400 (240 Mg) MG MAGnesium-O xide 400 (240 Mg) MG No MAGnesium- Oxide 400 (240 Mg) MG Pantoprazol e Sodium 40 MG Pantoprazol e Sodium 40 MG No 1{table t} QD Pantoprazo le Sodium 40 MG Metoprolol Succinate ER 50 MG Metoprolol Succinate ER 50 MG No 1{table t} BID Metoprolol Succinate ER 50 MG Praluent 75 MG/ML Praluent 75 MG/ML No Praluent 75 MG/ML Senna 8.6 MG Senna 8.6 MG No 2{table ts_at_b edtime_ as_need ed} QD Senna 8.6 MG Aspirin Low Dose 81 MG Aspirin Low Dose 81 MG No Aspirin Low Dose 81 MG Cholecalcif ashlee 25 MCG (1000 UT) Cholecalcif ashlee 25 MCG (1000 UT) No 2{capsu les} QD Cholecalci ferol 25 MCG (1000 UT) Docusate Sodium 100 MG Docusate Sodium 100 MG No Docusate Sodium 100 MG MAGnesium-O xide 400 (240 Mg) MG MAGnesium-O xide 400 (240 Mg) MG No MAGnesium- Oxide 400 (240 Mg) MG Pantoprazol e Sodium 40 MG Pantoprazol e Sodium 40 MG No 1{table t} QD Pantoprazo le Sodium 40 MG Metoprolol Succinate ER 50 MG Metoprolol Succinate ER 50 MG No 1{table t} BID Metoprolol Succinate ER 50 MG Praluent 75 MG/ML Praluent 75 MG/ML No Praluent 75 MG/ML Senna 8.6 MG Senna 8.6 MG No 2{table ts_at_b edtime_ as_need ed} QD Senna 8.6 MG Aspirin Low Dose 81 MG Aspirin Low Dose 81 MG No Aspirin Low Dose 81 MG Cholecalcif ashlee 25 MCG (1000 UT) Cholecalcif ashlee 25 MCG (1000 UT) No 2{capsu les} QD Cholecalci ferol 25 MCG (1000 UT) Docusate Sodium 100 MG Docusate Sodium 100 MG No Docusate Sodium 100 MG MAGnesium-O xide 400 (240 Mg) MG MAGnesium-O xide 400 (240 Mg) MG No MAGnesium- Oxide 400 (240 Mg) MG Pantoprazol e Sodium 40 MG Pantoprazol e Sodium 40 MG No 1{table t} QD Pantoprazo le Sodium 40 MG Metoprolol Succinate ER 50 MG Metoprolol Succinate ER 50 MG No 1{table t} BID Metoprolol Succinate ER 50 MG Aspirin Low Dose 81 MG Aspirin Low Dose 81 MG No Aspirin Low Dose 81 MG Cholecalcif ashlee 25 MCG (1000 UT) Cholecalcif ashlee 25 MCG (1000 UT) No 2{capsu les} QD Cholecalci ferol 25 MCG (1000 UT) Praluent 75 MG/ML Praluent 75 MG/ML No Praluent 75 MG/ML Docusate Sodium 100 MG Docusate Sodium 100 MG No Docusate Sodium 100 MG Pantoprazol e Sodium 40 MG Pantoprazol e Sodium 40 MG No 1{table t} QD Pantoprazo le Sodium 40 MG Senna 8.6 MG Senna 8.6 MG No 2{table ts_at_b edtime_ as_need ed} QD Senna 8.6 MG Metoprolol Succinate ER 50 MG Metoprolol Succinate ER 50 MG No 1{table t} BID Metoprolol Succinate ER 50 MG Aspirin Low Dose 81 MG Aspirin Low Dose 81 MG No Aspirin Low Dose 81 MG Cholecalcif ashlee 25 MCG (1000 UT) Cholecalcif ashlee 25 MCG (1000 UT) No 2{capsu les} QD Cholecalci ferol 25 MCG (1000 UT) Praluent 75 MG/ML Praluent 75 MG/ML No Praluent 75 MG/ML Docusate Sodium 100 MG Docusate Sodium 100 MG No Docusate Sodium 100 MG Pantoprazol e Sodium 40 MG Pantoprazol e Sodium 40 MG No 1{table t} QD Pantoprazo le Sodium 40 MG Senna 8.6 MG Senna 8.6 MG No 2{table ts_at_b edtime_ as_need ed} QD Senna 8.6 MG Aspirin Low Dose 81 MG Aspirin Low Dose 81 MG No Aspirin Low Dose 81 MG Docusate Sodium 100 MG Docusate Sodium 100 MG No Docusate Sodium 100 MG Metoprolol Succinate ER 50 MG Metoprolol Succinate ER 50 MG No 1{table t} BID Metoprolol Succinate ER 50 MG Pantoprazol e Sodium 40 MG Pantoprazol e Sodium 40 MG No 1{table t} QD Pantoprazo le Sodium 40 MG Senna 8.6 MG Senna 8.6 MG No 2{table ts_at_b edtime_ as_need ed} QD Senna 8.6 MG Praluent 75 MG/ML Praluent 75 MG/ML No Praluent 75 MG/ML Cholecalcif ashlee 25 MCG (1000 UT) Cholecalcif ashlee 25 MCG (1000 UT) No 2{capsu les} QD Cholecalci ferol 25 MCG (1000 UT) Citalopram Hydrobromid e 10 MG Citalopram Hydrobromid e 10 MG No 1{table t} QD Citalopram Hydrobromi de 10 MG Metoprolol Succinate ER 50 MG Metoprolol Succinate ER 50 MG No 1{table t} BID Metoprolol Succinate ER 50 MG Mirtazapine 15 MG Mirtazapine 15 MG No QD Mirtazapin e 15 MG Pantoprazol e Sodium 40 MG Pantoprazol e Sodium 40 MG No 1{table t} QD Pantoprazo le Sodium 40 MG Cholecalcif ashlee 25 MCG (1000 UT) Cholecalcif ashlee 25 MCG (1000 UT) No 2{capsu les} QD Cholecalci ferol 25 MCG (1000 UT) Metoprolol Succinate ER 50 MG Metoprolol Succinate ER 50 MG No Metoprolol Succinate ER 50 MG Pantoprazol e Sodium 40 MG Pantoprazol e Sodium 40 MG No Pantoprazo le Sodium 40 MG Senna 8.6 MG Senna 8.6 MG No 2{table ts_at_b edtime_ as_need ed} QD Senna 8.6 MG Aspirin Low Dose 81 MG Aspirin Low Dose 81 MG No Aspirin Low Dose 81 MG MAGnesium-O xide 400 (240 Mg) MG MAGnesium-O xide 400 (240 Mg) MG No MAGnesium- Oxide 400 (240 Mg) MG Docusate Sodium 100 MG Docusate Sodium 100 MG No Docusate Sodium 100 MG Metoprolol Succinate ER 50 MG Metoprolol Succinate ER 50 MG No 1{table t} QD Metoprolol Succinate ER 50 MG Cholecalcif ashlee 25 MCG (1000 UT) Cholecalcif ashlee 25 MCG (1000 UT) No 2{capsu les} QD Cholecalci ferol 25 MCG (1000 UT) Aspirin Low Dose 81 MG Aspirin Low Dose 81 MG No Aspirin Low Dose 81 MG MAGnesium-O xide 400 (240 Mg) MG MAGnesium-O xide 400 (240 Mg) MG No MAGnesium- Oxide 400 (240 Mg) MG Pantoprazol e Sodium 40 MG Pantoprazol e Sodium 40 MG No QD Pantoprazo le Sodium 40 MG Docusate Sodium 100 MG Docusate Sodium 100 MG No Docusate Sodium 100 MG Senna 8.6 MG Senna 8.6 MG No 2{table ts_at_b edtime_ as_need ed} QD Senna 8.6 MG Immunizations Ordered Immunization Name Filled Immunization Name Date Status Comments Source Moderna COVID-19 Vaccine Moderna COVID-19 Vaccine 2021-10-14 15:21:00 Completed [facility] Moderna COVID-19 Vaccine Moderna COVID-19 Vaccine 2021-10-14 15:21:00 Completed [facility] Moderna COVID-19 Vaccine Moderna COVID-19 Vaccine 2021-10-14 15:21:00 Completed [facility] Moderna COVID-19 Vaccine Moderna COVID-19 Vaccine 2020-12-09 15:20:00 Completed [facility] Moderna COVID-19 Vaccine Moderna COVID-19 Vaccine 2020-12-09 15:20:00 Completed [facility] Moderna COVID-19 Vaccine Moderna COVID-19 Vaccine 2020-12-09 15:20:00 Completed [facility] Moderna COVID-19 Vaccine Moderna COVID-19 Vaccine 2020-11-08 15:20:00 Completed [facility] Moderna COVID-19 Vaccine Moderna COVID-19 Vaccine 2020-11-08 15:20:00 Completed [facility] Moderna COVID-19 Vaccine Moderna COVID-19 Vaccine 2020-11-08 15:20:00 Completed [facility] Td 2017-08-16 00:00:00 Completed [facility] Td 2017-08-16 00:00:00 Completed [facility] Moderna COVID-19 Vaccine Moderna COVID-19 Vaccine Unknown Completed [facility] Moderna COVID-19 Vaccine Moderna COVID-19 Vaccine Unknown Completed [facility] Moderna COVID-19 Vaccine Moderna COVID-19 Vaccine Unknown Completed [facility] FLUZONE HIGH DOSE OVER 65 FLUZONE HIGH DOSE OVER 65 Unknown Completed [facility] Moderna COVID-19 Vaccine Moderna COVID-19 Vaccine Unknown Completed [facility] Moderna COVID-19 Vaccine Moderna COVID-19 Vaccine Unknown Completed [facility] Moderna COVID-19 Vaccine Moderna COVID-19 Vaccine Unknown Completed [facility] FLUZONE HIGH DOSE OVER 65 FLUZONE HIGH DOSE OVER 65 Unknown Completed [facility] Moderna COVID-19 Vaccine Moderna COVID-19 Vaccine Unknown Completed [facility] Moderna COVID-19 Vaccine Moderna COVID-19 Vaccine Unknown Completed [facility] Moderna COVID-19 Vaccine Moderna COVID-19 Vaccine Unknown Completed [facility] FLUZONE HIGH DOSE OVER 65 FLUZONE HIGH DOSE OVER 65 Unknown Completed [facility] Moderna COVID-19 Vaccine Moderna COVID-19 Vaccine Unknown Completed [facility] Moderna COVID-19 Vaccine Moderna COVID-19 Vaccine Unknown Completed [facility] Moderna COVID-19 Vaccine Moderna COVID-19 Vaccine Unknown Completed [facility] FLUZONE HIGH DOSE OVER 65 FLUZONE HIGH DOSE OVER 65 Unknown Completed [facility] Moderna COVID-19 Vaccine Moderna COVID-19 Vaccine Unknown Completed [facility] Moderna COVID-19 Vaccine Moderna COVID-19 Vaccine Unknown Completed [facility] Moderna COVID-19 Vaccine Moderna COVID-19 Vaccine Unknown Completed [facility] FLUZONE HIGH DOSE OVER 65 FLUZONE HIGH DOSE OVER 65 Unknown Completed [facility] Moderna COVID-19 Vaccine Moderna COVID-19 Vaccine Unknown Completed [facility] Moderna COVID-19 Vaccine Moderna COVID-19 Vaccine Unknown Completed [facility] Moderna COVID-19 Vaccine Moderna COVID-19 Vaccine Unknown Completed [facility] FLUZONE HIGH DOSE OVER 65 FLUZONE HIGH DOSE OVER 65 Unknown Completed [facility] Moderna COVID-19 Vaccine Moderna COVID-19 Vaccine Unknown Completed [facility] Moderna COVID-19 Vaccine Moderna COVID-19 Vaccine Unknown Completed [facility] Moderna COVID-19 Vaccine Moderna COVID-19 Vaccine Unknown Completed [facility] FLUZONE HIGH DOSE OVER 65 FLUZONE HIGH DOSE OVER 65 Unknown Completed [facility] Moderna COVID-19 Vaccine Moderna COVID-19 Vaccine Unknown Completed [facility] Moderna COVID-19 Vaccine Moderna COVID-19 Vaccine Unknown Completed [facility] Moderna COVID-19 Vaccine Moderna COVID-19 Vaccine Unknown Completed [facility] FLUZONE HIGH DOSE OVER 65 FLUZONE HIGH DOSE OVER 65 Unknown Completed [facility] Moderna COVID-19 Vaccine Moderna COVID-19 Vaccine Unknown Completed [facility] Moderna COVID-19 Vaccine Moderna COVID-19 Vaccine Unknown Completed [facility] Moderna COVID-19 Vaccine Moderna COVID-19 Vaccine Unknown Completed [facility] FLUZONE HIGH DOSE OVER 65 FLUZONE HIGH DOSE OVER 65 Unknown Completed [facility] Prevnar 20 (PCV20) Prevnar 20 (PCV20) Unknown Completed [facility] Moderna COVID-19 Vaccine Moderna COVID-19 Vaccine Unknown Completed [facility] Moderna COVID-19 Vaccine Moderna COVID-19 Vaccine Unknown Completed [facility] Moderna COVID-19 Vaccine Moderna COVID-19 Vaccine Unknown Completed [facility] FLUZONE HIGH DOSE OVER 65 FLUZONE HIGH DOSE OVER 65 Unknown Completed [facility] Prevnar 20 (PCV20) Prevnar 20 (PCV20) Unknown Completed [facility] Moderna COVID-19 Vaccine Moderna COVID-19 Vaccine Unknown Completed [facility] Moderna COVID-19 Vaccine Moderna COVID-19 Vaccine Unknown Completed [facility] Moderna COVID-19 Vaccine Moderna COVID-19 Vaccine Unknown Completed [facility] FLUZONE HIGH DOSE OVER 65 FLUZONE HIGH DOSE OVER 65 Unknown Completed [facility] Prevnar 20 (PCV20) Prevnar 20 (PCV20) Unknown Completed [facility] Moderna COVID-19 Vaccine Moderna COVID-19 Vaccine Unknown Completed [facility] Moderna COVID-19 Vaccine Moderna COVID-19 Vaccine Unknown Completed [facility] Moderna COVID-19 Vaccine Moderna COVID-19 Vaccine Unknown Completed [facility] FLUZONE HIGH DOSE OVER 65 FLUZONE HIGH DOSE OVER 65 Unknown Completed [facility] Vital Signs Vital Name Observation Time Observation Value Comments S ource height 2024-01-30 13:00:00 68 [in_i] Commo n [facility] weight 2024-01-30 13:00:00 194 [lb_av] Comm on [facility] temperature 2024-01-30 13:00:00 97.8 [degF] Com mon [facility] bmi 2024-01-30 13:00:00 29.49 kg/m2 Comm on [facility] oximetry 2024-01-30 13:00:00 98 % Commo n [facility] respiratory rate 2024-01-30 13:00:00 16 /min Common [facility] blood pressure systolic 2024-01-30 13:00:00 130 mm[Hg] [facility] blood pressure diastolic 2024-01-30 13:00:00 72 mm[Hg] Common [facility] height 2024-01-27 13:00:00 68 [in_i] Commo n [facility] weight 2024-01-27 13:00:00 194 [lb_av] Comm on [facility] temperature 2024-01-27 13:00:00 97.3 [degF] Com [facility] bmi 2024-01-27 13:00:00 29.49 kg/m2 Comm on [facility] oximetry 2024-01-27 13:00:00 99 % Commo n [facility] respiratory rate 2024-01-27 13:00:00 16 /min [facility] blood pressure systolic 2024-01-27 13:00:00 128 mm[Hg] [facility] blood pressure diastolic 2024-01-27 13:00:00 62 mm[Hg] Common [facility] height 2024-01-27 13:00:00 68 [in_i] Commo n [facility] weight 2024-01-27 13:00:00 194 [lb_av] Comm on [facility] temperature 2024-01-27 13:00:00 97.3 [degF] Com mon [facility] bmi 2024-01-27 13:00:00 29.49 kg/m2 Comm on [facility] oximetry 2024-01-27 13:00:00 99 % Commo n [facility] respiratory rate 2024-01-27 13:00:00 16 /min Common [facility] blood pressure systolic 2024-01-27 13:00:00 128 mm[Hg] Common [facility] blood pressure diastolic 2024-01-27 13:00:00 62 mm[Hg] [facility] height 2023-11-22 15:00:00 68 [in_i] Commo n [facility] weight 2023-11-22 15:00:00 194 [lb_av] Comm on [facility] bmi 2023-11-22 15:00:00 29.49 kg/m2 Comm on [facility] height 2023-05-31 15:40:00 68 [in_i] Commo n [facility] weight 2023-05-31 15:40:00 194 [lb_av] Comm on [facility] temperature 2023-05-31 15:40:00 97.6 [degF] Com mon [facility] bmi 2023-05-31 15:40:00 29.49 kg/m2 Comm on [facility] oximetry 2023-05-31 15:40:00 96 % Commo n [facility] respiratory rate 2023-05-31 15:40:00 16 /min [facility] blood pressure systolic 2023-05-31 15:40:00 122 mm[Hg] [facility] blood pressure diastolic 2023-05-31 15:40:00 70 mm[Hg] Common [facility] height 2023-02-21 13:00:00 68 [in_i] Commo n [facility] weight 2023-02-21 13:00:00 194 [lb_av] Comm on [facility] temperature 2023-02-21 13:00:00 98.0 [degF] Com [facility] bmi 2023-02-21 13:00:00 29.49 kg/m2 Comm on [facility] oximetry 2023-02-21 13:00:00 98 % Commo n [facility] respiratory rate 2023-02-21 13:00:00 16 /min Common [facility] blood pressure systolic 2023-02-21 13:00:00 132 mm[Hg] Common [facility] blood pressure diastolic 2023-02-21 13:00:00 78 mm[Hg] Common [facility] height 2023-02-21 13:00:00 68 [in_i] Commo n [facility] weight 2023-02-21 13:00:00 194 [lb_av] Comm on [facility] temperature 2023-02-21 13:00:00 98.0 [degF] Com mon [facility] bmi 2023-02-21 13:00:00 29.49 kg/m2 Comm on [facility] oximetry 2023-02-21 13:00:00 98 % Commo n [facility] respiratory rate 2023-02-21 13:00:00 16 /min Common [facility] blood pressure systolic 2023-02-21 13:00:00 132 mm[Hg] Common [facility] blood pressure diastolic 2023-02-21 13:00:00 78 mm[Hg] Common [facility] height 2021-10-14 13:00:00 68 [in_i] Commo n [facility] weight 2021-10-14 13:00:00 171.6 [lb_av] Co mmon [facility] temperature 2021-10-14 13:00:00 98.2 [degF] Com mon [facility] bmi 2021-10-14 13:00:00 26.09 kg/m2 Comm on [facility] oximetry 2021-10-14 13:00:00 98 % Commo n [facility] respiratory rate 2021-10-14 13:00:00 16 /min Common [facility] [facility] systolic 2021-10-14 13:00:00 124 mm[Hg] [facility] blood pressure diastolic 2021-10-14 13:00:00 70 mm[Hg] [facility] blood pressure diastolic 2021-09-15 13:20:00 72 mm[Hg] [facility] height 2021-09-15 13:20:00 68 [in_i] Commo n [facility] weight 2021-09-15 13:20:00 167.8 [lb_av] Co mmon [facility] temperature 2021-09-15 13:20:00 97.8 [degF] Com mon [facility] bmi 2021-09-15 13:20:00 25.51 kg/m2 Comm on [facility] oximetry 2021-09-15 13:20:00 98 % Commo n [facility] respiratory rate 2021-09-15 13:20:00 16 /min [facility] blood pressure systolic 2021-09-15 13:20:00 128 mm[Hg] [facility] Procedures Procedure Date / Time Performed Performing Clinician Source PHYSICIAN ORDERS 2022-02-25 05:01:00 Doctor Unas signed, [facility] PHYSICIAN CERTIFICATION STATEMENT 2022-02-16 05:01:00 Doctor Unassigned, [facility] Encounters Start Date/Time End Date/Time Encounter Type Admission Type Attending Clinicians Care Facility Care Department Encounter ID Source 2023-05-17 16:21:44 Outpatient SYSTEM, PROVIDER STARLA CHA [id number] MD Toyin santo 2023-03-14 15:24:45 Outpatient SYSTEM, PROVIDER STARLA CHA [id number] MD Toyin santo 2023-02-18 13:36:00 Outpatient June Kent [facility] [id number] [facility] 2023-02-17 13:25:01 Outpatient June Kent [facility] [id number] [facility] 2022-07-20 15:24:02 Outpatient June Kent [facility] STLC [id number] [facility] 2022-02-05 07:20:40 Outpatient SYSTEM, PROVIDER STARLA CHA [id number] MD Toyin santo 2022-01-15 10:18:02 Outpatient June Kent [facility] [id number] [facility] 2021-12-03 13:07:41 Outpatient 3 [id number] [facility] REF [id number] [facility] 2021-12-02 14:10:51 Outpatient June Kent [facility] [id number] [facility] 2021-10-23 14:29:25 Outpatient SYSTEM, PROVIDER STARLA CHA [id number] MD Toyin asnto 2021-08-27 11:25:00 Inpatient 3 [facility] Niki zamudio ENCPL JOSE [id number] [facility] [place] [facility] 2021-08-04 11:59:46 Outpatient SYSTEM, PROVIDER STARLA CHA [id number] MD Toyin santo 2021-06-30 14:07:06 Outpatient SYSTEM, PROVIDER STARLA CHA [id number] MD Toyin santo 2021-04-29 11:11:45 Outpatient SYSTEM, PROVIDER STARLA CHA [id number] MD Toyin santo 2021-04-02 09:41:22 Outpatient SYSTEM, PROVIDER STARLA CHA [id number] MD Toyin santo 2024-01-30 00:00:00 2024-01-30 00:00:00 OFFICE VISIT ESTAB PT LEVEL 2 STLMLC STLMLC [id number] [facility] 2024-01-27 00:00:00 2024-01-27 00:00:00 OFFICE VISIT ESTAB PT LEVEL 4 STLMLC STLMLC [id number] [facility] 2024-01-27 00:00:00 2024-01-27 00:00:00 SUB ANNUAL [facility] WELLNESS VISIT [facility] [id number] [facility] 2024-01-19 00:00:00 2024-01-19 00:00:00 (TEL) STLMLC STLMLC [id number] [facility] 2023-12-23 06:09:06 2023-12-23 23:59:00 Outpatient EL DYLAN CORONADO MDA MDA [id number] MD Toyin santo 2023-12-23 14:44:56 2023-12-23 14:44:56 Outpatient EL RASHAWN NICOLE MDA MDA [id number] MD Toyin santo 2023-12-23 14:44:56 2023-12-23 14:44:56 Outpatient EL RASHAWN NICOLE MDA MDA [id number] MD Toyin santo 2023-12-23 12:30:40 2023-12-23 12:30:40 Outpatient EL DYLAN CORONADO MDA MDA [id number] MD Toyin santo 2023-12-23 07:52:40 2023-12-23 07:52:40 Outpatient EL DYLAN CORONADO MDA MDA [id number] MD Toyin santo 2023-12-23 06:07:37 2023-12-23 06:07:37 Outpatient EL DYLAN CORONADO MDA MDA [id number] MD Toyin santo 2023-12-15 12:50:02 2023-12-15 14:14:36 Outpatient EL GHAZALA OCONNOR MDA MDA [id number] MD Toyin santo 2023-12-06 00:00:00 2023-12-06 00:00:00 (TEL) STLMLC STLMLC [id number] [facility] 2023-11-22 00:00:00 2023-11-22 00:00:00 OFFICE VISIT ESTAB PT LEVEL 3 STLMLC STLMLC [id number] [facility] 2023-11-22 00:00:00 2023-11-22 00:00:00 (TEL) STLMLC STLMLC [id number] [facility] 2023-10-24 08:04:17 2023-10-24 09:10:45 Outpatient EL SILVIAVASQUEZ MejiaJOHNMICHAEL MDA MDA [id number] MD Toyin santo 2023-09-23 07:58:29 2023-09-23 23:59:00 Outpatient EL LE, RICHARDSON MDA MDA [id number] MD Toyin santo 2023-09-23 07:58:18 2023-09-23 23:59:00 Outpatient EL PARAM CORONADOUONG MDA MDA [id number] MD Toyin santo 2023-09-23 15:06:11 2023-09-23 15:06:11 Outpatient EL RASHAWN NICOLE MDA MDA [id number] MD Toyin santo 2023-09-23 12:13:20 2023-09-23 12:13:20 Outpatient EL LE, RICHARDSON MDA [id number] [facility]23-09-22 12:49:34 2023-09-22 12:49:34 Outpatient EL IVONNE RICHARDSON MDA MDA [id number] MD Toyin santo 2023-07-26 07:14:51 2023-07-26 12:19:55 Outpatient EL WINNIE SONI MDA MDA [id number] MD Toyin santo 2023-07-26 07:14:51 2023-07-26 12:19:55 Outpatient EL WINNIE SONI MDA MDA [id number] MD Toyin santo 2023-06-24 06:05:45 2023-06-24 23:59:00 Outpatient EL LIAM SALCIDO MDA MDA [id number] MD Toyin santo 2023-06-24 06:05:31 2023-06-24 23:59:00 Outpatient EL LOLY LIAM MDA MDA [id number] MD Toyin santo 2023-06-24 13:21:28 2023-06-24 13:21:28 Outpatient EL RASHAWN NICOLE MDA MDA [id number] MD Toyin santo 2023-06-24 12:07:39 2023-06-24 12:07:39 Outpatient EL LOLY LIAM MDA MDA [id number] MD Toyin santo 2023-06-24 08:20:43 2023-06-24 08:20:43 Outpatient EL TIMCILIBERTAD LIAM MDA MDA [id number] MD Toyin santo 2023-06-13 12:40:35 2023-06-13 14:53:24 Outpatient EL MUHAJ, FIORINDA MDA MDA [id number] MD Toyin santo 2023-06-13 12:40:35 2023-06-13 12:40:35 Outpatient GO ABBASI MDA MDA [id number] MD Toyin santo 2023-05-31 00:00:00 2023-05-31 00:00:00 OFFICE VISIT ESTAB PT LEVEL 4 STLMLC STLMLC [id number] [facility] 2023-05-23 00:00:00 2023-05-23 00:00:00 (TEL) STLMLC STLMLC [id number] [facility] 2023-04-15 16:55:54 2023-04-15 23:59:00 Outpatient ALVAREZ MORGAN MDA MDA [id number] MD Toyin santo 2023-04-15 14:34:09 2023-04-15 17:06:59 Outpatient ALVAREZ MORGAN MDA MDA [id number] MD Toyin santo 2023-04-15 14:12:44 2023-04-15 16:54:00 Outpatient ALVAREZ MORGAN MDA MDA [id number] MD Toyin santo 2023-03-25 00:00:00 2023-03-25 00:00:00 (TEL) STLC STLMLC [id number] [facility] 2023-03-03 07:33:58 2023-03-03 10:04:05 Outpatient ROHAN WINNIE SONI MDA MDA [id number] MD Toyin santo 2023-02-21 00:00:00 2023-02-21 00:00:00 SUB ANNUAL [facility] WELLNESS VISIT STLMLC STLMLC [id number] [facility] 2023-02-21 00:00:00 2023-02-21 00:00:00 OFFICE VISIT ESTAB PT LEVEL 4 STLMLC STLMLC [id number] [facility] 2023-02-09 11:07:22 2023-02-09 23:59:00 Outpatient ALVAREZ MORGAN MDA MDA [id number] MD Toyin santo 2023-02-09 10:09:04 2023-02-09 11:01:12 Outpatient EL MALU CRUZ MDA MDA [id number] MD Toyin santo 2023-02-09 08:33:09 2023-02-09 10:34:05 Outpatient EL GO SALAS MDA MDA [id number] MD Toyin santo 2022-12-31 15:59:00 2022-12-31 15:59:00 Outpatient RASHAWN OAKES MDA MDA [id number] MD Toyin santo 2022-12-30 06:15:00 2022-12-30 23:59:00 Outpatient EL TIMCILIBERTAD LIAM MDA MDA [id number] MD Toyin santo 2022-12-30 12:29:43 2022-12-30 12:29:43 Outpatient EL TIMMARIPOSALEVIA MDA MDA [id number] MD Toyin santo 2022-12-30 10:27:50 2022-12-30 10:27:50 Outpatient EL TIMCILIBERTAD, LIAM MDA MDA [id number] MD Toyin santo 2022-12-30 06:52:02 2022-12-30 06:52:02 Outpatient EL TIMCILIAM MAURER MDA MDA [id number] MD Toyin santo 2022-12-08 00:00:00 2022-12-08 00:00:00 (TEL) [facility] [id number] [facility] 2022-09-28 06:34:52 2022-09-28 23:59:00 Outpatient MEG CALVERT MDA MDA [id number] MD Toyin santo 2022-09-28 14:08:19 2022-09-28 14:08:19 Outpatient RASHAWN OAKES MDA MDA [id number] MD Toyin santo 2022-09-28 12:36:13 2022-09-28 12:36:13 Outpatient MEG CALVERT MDA MDA [id number] MD Toyin santo 2022-09-28 10:10:41 2022-09-28 10:10:41 Outpatient MEG CALVERT MDA MDA [id number] MD Toyin santo 2022-09-28 07:18:40 2022-09-28 07:18:40 Outpatient EL MEG EVRONICA MDA MDA [id number] MD Toyin santo 2022-07-22 00:00:00 2022-07-22 00:00:00 ambulatory STLMLC STLMLC [id number] [facility] 2022-06-16 00:00:00 2022-06-16 00:00:00 ambulatory STLMLC STLMLC [id number] [facility] 2022-05-18 14:23:50 2022-05-18 14:23:50 Outpatient RASHAWN OAKES MDA MDA [id number] MD Toyin santo 2022-05-14 06:51:15 2022-05-14 23:59:00 Outpatient EL DORINA MORRIS MDA MDA [id number] MD Toyin santo 2022-05-14 09:53:13 2022-05-14 09:53:13 Outpatient EL DORINA MORRIS MDA MDA [id number] MD Toyin santo 2022-05-14 07:02:54 2022-05-14 07:02:54 Outpatient DORINA BAUGH MDA MDA [id number] MD Toyin santo 2022-04-30 08:07:18 2022-04-30 23:59:00 Outpatient DEDE DENTONSONIAARNOLD MDA MDA [id number] MD Toyin santo 2022-04-30 08:19:30 2022-04-30 09:45:42 Outpatient ROHAN CRUZ MALU MDA MDA [id number] MD Toyin santo 2022-03-19 10:30:00 2022-03-19 23:59:00 Outpatient FABIEN TAMAYO MDA MDA [id number] MD Toyin santo 2022-03-19 11:03:35 2022-03-19 12:37:38 Outpatient FABIEN TAMAYO MDA MDA [id number] MD Toyin santo 2022-02-25 00:00:00 2022-02-25 00:00:00 Orders Only Doctor Unassigned, [facility] [id number] [facility] 2022-02-16 00:00:00 2022-02-16 00:00:00 Orders Only Doctor Unassigned, [facility] [id number] [facility] 2022-02-12 10:22:45 2022-02-12 13:09:41 Outpatient RASHAWN OAKES MDA, MDA [id number] MD Toyin santo 2022-02-11 09:16:50 2022-02-11 09:16:50 Outpatient RASHAWN OAKES MDA, MDA [id number] MD Toyin snato 2022-02-11 08:59:26 2022-02-11 09:05:49 Outpatient RASHAWN OAKES MDA, MDA [id number] MD Toyin santo 2022-01-19 00:00:00 2022-01-19 00:00:00 ambulatory STLMLC STLMLC [id number] [facility] 2021-12-21 00:00:00 2021-12-21 00:00:00 ambulatory STLMLC STLMLC [id number] [facility] 2021-11-13 14:57:04 2021-11-13 14:57:04 Outpatient RASHAWN OAKES MDA, MDA [id number] MD Toyin santo 2021-11-12 07:14:34 2021-11-12 07:14:34 Outpatient RASHAWN OAKES MDA, MDA [id number] MD Toyin santo 2021-10-14 00:00:00 2021-10-14 00:00:00 OFFICE VISIT ESTAB PT LEVEL 4 STLMLC STLMLC [id number] [facility] 2021-10-14 00:00:00 2021-10-14 00:00:00 ambulatory STLMLC STLMLC [id number] [facility] 2021-10-09 10:00:00 2021-10-09 23:59:00 Outpatient PRATIBHA CARBALLO MDA, MDA [id number] MD Toyin santo 2021-10-09 11:47:54 2021-10-09 16:00:06 Outpatient EL CHLOÉ SALDANA MDA MDA [id number] MD Toyin santo 2021-10-09 10:44:05 2021-10-09 11:51:34 Outpatient EL VIANNEY HIDALGO MDA MDA [id number] MD Toyin santo 2021-09-18 08:45:00 2021-09-18 23:59:00 Outpatient EL DYLAN CORONADO MDA MDA [id number] MD Toyin santo 2021-09-18 11:16:17 2021-09-18 12:58:27 Outpatient EL SAMMIRob FABIEN MDA MDA [id number] MD Toyin santo 2021-09-18 11:48:37 2021-09-18 11:48:37 Outpatient EL MDA MDA [id number] MD Toyin santo 2021-09-18 09:07:43 2021-09-18 11:27:47 Outpatient EL RASHAWN NICOLE MDA MDA [id number] MD Toyin santo 2021-09-15 00:00:00 2021-09-15 00:00:00 OFFICE VISIT NEW PT LEVEL 4 STLMLC STLMLC [id number] [facility] 2021-09-10 10:02:00 2021-09-10 23:59:00 Outpatient CON SAUNDERS MDA MDA [id number] MD Toyin santo 2021-08-25 06:20:00 2021-08-25 23:59:00 Outpatient CON SAUNDERS MDA MDA [id number] MD Toyin santo 2021-08-03 10:10:00 2021-08-12 10:35:00 Inpatient ER DIAB, ROSA MDA Melanoma [id number] MD Toyin santo 2021-08-11 13:00:00 2021-08-11 23:59:00 Inpatient EL YOKO RENNER MDA MDA [id number] MD Toyin santo 2021-08-08 11:23:13 2021-08-08 11:45:04 Inpatient EL MDA MDA [id number] MD Toyin santo 2021-08-07 12:02:09 2021-08-07 12:02:12 Inpatient EL KADIE AHUJA MDA MDA [id number] MD [place]in santo 2021-08-05 22:56:54 2021-08-05 23:11:28 Inpatient EL MDA MDA [id number] MD Toyin santo 2021-08-04 09:23:32 2021-08-04 09:23:35 Inpatient EL MADDISON REDMOND MDA MDA [id number] MD Toyin santo 2021-07-30 10:20:42 2021-07-30 11:04:26 Outpatient EL MDA MDA [id number] MD Toyin santo 2021-07-01 12:59:00 2021-07-27 17:39:00 Inpatient ER ASHLEY MATTA MDA PM\T\R [id number] MD [place]in santo 2021-07-26 10:28:46 2021-07-26 11:05:17 Inpatient EL MDA MDA [id number] MD Toyin santo 2021-07-20 14:00:15 2021-07-20 14:16:22 Inpatient EL ASHLEY MATTA MDA MDA [id number] MD Toyin santo 2021-07-10 11:57:16 2021-07-10 12:11:12 Inpatient EL RASHAWN CANCHOLA MDA MDA [id number] MD Toyin santo 2021-07-09 16:50:35 2021-07-09 17:37:06 Inpatient EL DEON SAYDA MDA MDA [id number] MD Toyin santo 2021-07-08 11:42:52 2021-07-08 17:10:04 Inpatient EL ONEL ASKEW MDA MDA [id number] MD Toyin santo 2021-07-07 12:33:51 2021-07-07 16:08:17 Inpatient ONEL MAYO MDA MDA [id number] MD Toyin santo 2021-07-06 14:12:52 2021-07-07 07:43:21 Inpatient ONEL MAYO MDA MDA [id number] MD Toyin santo 2021-07-06 07:48:52 2021-07-06 08:07:27 Inpatient ONEL MAYO MDA MDA [id number] MD Toyin santo 2021-07-06 04:14:05 2021-07-06 04:21:25 Inpatient RASHAWN OAKES MDA MDA [id number] MD Toyin santo 2021-07-04 00:40:08 2021-07-04 00:42:25 Inpatient RASHAWN OAKES MDA MDA [id number] MD [place]in santo 2021-07-03 14:55:55 2021-07-03 15:29:33 Inpatient RASHAWN GRESHAM MDA MDA [id number] MD Toyin santo 2021-07-02 16:14:14 2021-07-02 22:41:00 Inpatient EL DEBORAH PULIDO MDA MDA [id number] MD [place]in santo 2021-07-02 12:57:56 2021-07-02 19:36:30 Inpatient EL DENEEN VILLALPANDO MDA MDA [id number] MD [place]in santo 2021-07-02 08:22:41 2021-07-02 09:32:55 Inpatient RASHAWN OAKES MDA MDA [id number] MD Toyin santo 2021-06-26 09:23:42 2021-06-26 11:18:02 Outpatient EL MALU CRUZ MDA MDA [id number] MD Toyin santo 2021-06-19 13:45:00 2021-06-19 23:59:00 Outpatient EL IVONNE, RICHARDSON MDA MDA [id number] MD Toyin santo 2021-06-19 14:31:53 2021-06-19 14:31:53 Outpatient RASHAWN OAKES MDA MDA [id number] MD Toyin santo 2021-06-19 13:15:00 2021-06-19 13:44:00 Outpatient EL LE, RICHARDSON MDA MDA [id number] MD Toyin santo 2021-06-19 12:23:30 2021-06-19 13:14:00 Outpatient EL LE, RICHARDSON MDA MDA [id number] MD [place]in santo 2021-06-19 10:26:23 2021-06-19 10:26:23 Outpatient EL MDA MDA [id number] MD Toyin santo 2021-06-05 11:10:30 2021-06-05 23:59:00 Outpatient EL LE, RICHARDSON MDA MDA [id number] MD [facility] 2021-06-05 11:10:07 2021-06-05 23:59:00 Outpatient EL IVONNE, RICHARDSON MDA MDA [id number] MD Toyin santo 2021-06-05 09:36:36 2021-06-05 11:37:59 Out[facility]ES [id number] 2021-06-05 08:30:00 2021-06-05 11:09:00 Outpatient EL LE, RICHARDSON MDA MDA [id number] MD Toyin santo 2021-06-05 08:00:00 2021-06-05 08:29:00 Outpatient EL LE, RICHARDSON MDA MDA [id number] MD [place]in santo 2021-06-04 09:49:20 2021-06-04 23:59:00 Outpatient EL LE[facility]ICHARDSON MDA [facility] [id number] [facility] 2021-06-02 10:00:00 2021-06-02 23:59:00 Outpatient EL LE[facility] RICHARDSON MDA [facility] [id number] [facility] 2021-06-02 12:37:34 2021-06-02 12:37:34 Outpatient EL LE, RICHARDSON MDA MDA [id number] MD Toyin santo 2021-06-02 09:52:16 2021-06-02 09:59:00 Outpatient EL LE, RICHARDSON MDA MDA [id number] MD [place]in s[place] 2021-05-27 09:00:00 2021-05-27 23:59:00 Outpatient EL NICOLE RASHAWN MDA MDA [id number] MD Toyin santo 2021-05-27 08:12:06 2021-05-27 08:59:59 Outpatient EL GORDO CARCAMO MDA MDA [id number] MD [place]in s[place] 2021-05-27 07:31:26 2021-05-27 08:59:00 Outpatient EL GORDO CARCAMO MDA MDA [id number] MD [place]in s[place] 2021-05-26 09:30:00 2021-05-26 23:59:00 Outpatient EL RASHAWN CHURCHILL MDA MDA [id number] MD [place] s[place] 2021-05-19 13:01:26 2021-05-19 13:01:26 Outpatient RASHAWN OAKES MDA MDA [id number] MD [place] s[place] 2021-05-15 10:03:53 2021-05-15 23:59:00 Outpatient ROHAN MAYKELKETTY DAVIS MDA MDA [id number] MD [place] s[place] 2021-05-15 19:48:26 2021-05-15 19:48:26 Outpatient ROHAN MAYKELKETTY DAVIS MDA MDA [id number] MD [place] santo 2021-05-15 10:36:50 2021-05-15 10:36:50 Outpatient ROHAN MAYKELKETTY DAVIS MDA MDA [id number] MD [place] 2021-05-01 06:58:36 2021-05-01 06:58:36 Outpatient ROHAN MAYKELKETTY DAVIS MDA MDA [id number] MD [place] s[place] 2021-04-30 07:42:54 2021-04-30 23:59:00 Outpatient RASHAWN GRESHAM MDA MDA [id number] MD [place] 2021-04-30 07:41:51 2021-04-30 07:41:51 Outpatient RASHAWN GRESHAM MDA MDA [id number] MD Toyin santo
[2024-04-03 17:31] LABS: Absolute Basophils 0.1 K/uL (0-0.5); Absolute Eosinophils 0.1 K/uL (0-0.5); Absolute Lymphocytes (CBC) 2.3 K/uL (0.7-4.9); Absolute Monocytes 0.8 K/uL (0.1-1.3); Absolute Neutrophil 5.5 K/uL (1.8-8.0); Basophils % 1.2 % (0-1.3); Hematocrit 42.3 % (39.6-49.0); Hemoglobin 14.7 g/dL (13.6-17.9); Lymphocytes % 25.8 % (15.3-44.8); MCH 31.3 pg (27.0-35.0); MCHC 34.6 g/dL (32.0-36.0); MCV 90.4 fL (80-100); Monocytes % 9.2 % (3.3-12.3); Neutrophils % 62.8 % (41.7-73.7); Nucleated Red Blood Cells % 0.4 % (0-0); Platelets 151 thou/uL (152-406); RBC Red Blood Cell Count 4.69 M/uL (4.33-5.43); Red Cell Distribution Width 14.1 % (12.1-15.2)
[2024-04-03 17:38] LABS: Specific Gravity < 1.005 (1.005-1.030); Urine Bilirubin NEGATIVE (Negative); Urine Blood Negative (Negative); Urine Clarity Clear (Clear); Urine Color Yellow (Yellow); Urine Glucose NEGATIVE (Negative); Urine Ketones NEGATIVE (Negative); Urine Microscopic Reflex YN NO UMIC; Urine Nitrite NEGATIVE (Negative); Urine Protein NEGATIVE (Negative); Urine Urobilinogen 1+ (Normal); Urine pH 6.5 (5.0-7.0)
[2024-04-03 17:53] LABS: Albumin 3.1 g/dL (3.4-5.0); Albumin/Globulin Ratio 0.9 (1.1-1.8); Anion Gap 8.3 mEq/L (5.0-15.0); Bilirubin Total 5.8 mg/dL (0.2-1.0); Globulin 3.4 g/dL (2.3-3.5); Magnesium 2.3 mg/dL (1.6-2.4); Potassium 3.3 mEq/L (3.5-5.1); Protein, Total 6.5 g/dL (6.4-8.2)
[2024-04-03 18:20] LABS: Blood Morphology Comment NOT SEEN (NOT SEEN); Platelet Estimate ADEQ; White Blood Cell Scan OK (OK)
--- NOTE | 2024-04-03 19:03 | RAD REPORT ---
EXAM DESCRIPTION: CT - Abdomen Pelvis W Contrast - 04/03/2024 6:23 pm CLINICAL HISTORY: Abdominal pain COMPARISON: February 2023 TECHNIQUE: Computed axial tomography of the abdomen pelvis was obtained. 100 cc Isovue-300 was admin istered intravenously. Oral contrast was not requested which limits evaluation of bowel and appendix All CT scans are performed using dose optimization technique as appropriate and may include automated exposure control or mA/KV adjustment according to patient size. FINDINGS: Cholecystectomy Prominence of the biliary tree. Increased density is present within common bile duct. Small splenic cyst. Pancreas, adrenals and left kidney are unremarkable. Marked dilatation right ureteral pelvic junction unchanged. Normal appendix No evidence of diverticulitis. 2.4 centimeter saccular aneurysm extends off of right posterior aspect of the infrarenal abdominal aorta. This is slightly enlarged from 2002 in which it measured 2.3 centimeters. At this level there is a short segment dissection which is unchanged from the 2020 exam. Ulcerating plaque is also present. Mild to moderate bladder wall thickening. This may be secondary to a chronic bladder obstruction or i nflammation. Prostate gland is mildly to moderately enlarged IMPRESSION: Prominence of biliary tree. The patient is status post cholecystectomy. Increased densit y is present within the common bile duct. This may represent a mass or stone. 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
[2024-04-03 20:04] LABS: PTT, Activated Partial Thromb 35.6 SECONDS (24.3-36.9); Protime INR 1.19
--- NOTE | 2024-04-03 20:20 | ER ---
Nurse's Notes [facility] Name: Kota Stringer Age: 78 yrs Sex: Male : 1945 Arrival Date: 04/03/2024 Time: 15:38 Bed 6 Private MD: Diagnosis: Abnormal results of liver function studies;Dilation of bilary tree;Epigastric pain Presentation: 04/03 15:52 Chief complaint: Patient states: he has been having bloating and gas for approx 4-5 ap3 months. Coronavirus screen: At this time, the client does not indicate any symptoms associated with coronavirus-19. Ebola Screen: No symptoms or risks identified at this time. Initial Sepsis Screen: Does the patient meet any 2 criteria? No. Patient's initial sepsis screen is negative. Does the patient have a suspected source of infection? No. Patient's initial sepsis screen is negative. Risk Assessment: Do you want to hurt yourself or someone else? Patient reports no desire to harm self or others. Onset of symptoms is unknown. 15:52 Method Of Arrival: Ambulatory ap3 15:52 Acuity: EDU 3 ap3 Triage Assessment: 15:55 General: Appears in no apparent distress. Behavior is calm, cooperative, appropriate ap3 for age. Pain: Complains of pain in abdomen. Neuro: Level of Consciousness is awake, alert, obeys commands, Oriented to person, place, time, situation, Appropriate for age. Cardiovascular: Patient's skin is warm and dry. Respiratory: Airway is patent Respiratory effort is even, unlabored, Respiratory pattern is regular, symmetrical. GI: Reports lower abdominal pain, upper abdominal pain, gaseousness, nausea. Historical: - Allergies: 15:55 PENICILLINS; ap3 - PMHx: 15:55 adrenal cancer; immunotherapy; Irregular heart rate; melanoma; pituitary cancer; ap3 - PSHx: 15:55 melanoma removal; Cardiac Ablation; ap3 - Immunization history:: Client reports receiving the 2nd dose of the Covid vaccine. - Infectious Disease History:: Denies. - Social history:: Smoking status: Patient denies any tobacco usage or history of. Screenin:56 Abuse screen: Denies threats or abuse. Nutritional screening: No deficits noted. ap3 Tuberculosis screening: No symptoms or risk factors identified. Assessment: 17:00 General: Appears in no apparent distress. comfortable, Behavior is calm, cooperative, nj1 appropriate for age. 17:00 Pain: Denies pain. Neuro: Level of Consciousness is awake, alert, obeys commands, nj1 Oriented to person, place, situation. Cardiovascular: Patient's skin is warm and dry. Respiratory: Airway is patent Respiratory effort is even, unlabored. GI: Patient currently denies abdominal pain. 18:00 Reassessment: Patient appears in no apparent distress at this time. Patient and/or nj1 family updated on plan of care and expected duration. Pain level reassessed. Patient is alert, oriented x 3, equal unlabored respirations, skin warm/dry/pink. 19:00 Reassessment: Patient appears in no apparent distress at this time. Patient and/or jb4 family updated on plan of care and expected duration. Pain level reassessed. Patient is alert, oriented x 3, equal unlabored respirations, skin warm/dry/pink. 20:00 Reassessment: Patient appears in no apparent distress at this time. Patient and/or jb4 family updated on plan of care and expected duration. Pain level reassessed. Patient is alert, oriented x 3, equal unlabored respirations, skin warm/dry/pink. Vital Signs: 15:52 BP 180 / 94; Pulse 71; Resp 17; Temp 98.1; Pulse Ox 100% ; Weight 79.38 kg; Height 5 ap3 ft. 9 in. ; 17:00 BP 140 / 74; Pulse 63; Resp 18; Pulse Ox 100% ; nj1 18:00 BP 142 / 74; Pulse 62; Resp 18; Pulse Ox 99% ; nj1 20:00 BP 152 / 76; Pulse 63; Resp 16; Pulse Ox 100% on R/A; jb4 15:52 Body Mass Index 25.84 (79.38 kg, 175.26 cm) ap3 ED Course: 15:48 Patient arrived in ED. mg5 15:50 Jareth Bryant PA is PHCP. cp 15:51 Abundio Katz MD is Attending Physician. cp 15:55 Triage completed. ap3 15:56 Arm band placed on left wrist. ap3 16:49 Jackie Goetz, NATE is Primary Nurse. nj1 17:00 EKG done, by ED staff, reviewed by Jareth PALENCIA. nj1 17:07 Magnesium Sent. ko1 17:07 Troponin HS Sent. ko1 17:07 CBC with Diff Sent. ko1 17:07 CMP Sent. ko1 17:07 Lipase Sent. ko1 17:07 Urinalysis w/ reflexes Sent. ko1 18:24 CT Abd/Pelvis - IV Contrast Only In Process Unspecified. EDMS 20:15 called to initiate transfer with MD Bello spoke with Trena/ per transfer center vk patient not accepted due to saturation. 20:18 initiated transfer with [facility] spoke with vk 21:14 patient accepted to [facility] RM [address] Helms / initiated transport with EMS vk stated 30 mins ETA. Administered Medications: No medications were administered Outcome: 20:19 ER care complete, transfer ordered by . dilip 21:52 Patient left the ED. vc1 Signatures: Dispatcher [employer] EDMS Jareth Bryant PA PA cp Bryson, James, RN RN jb4 Yana Lantigua RN RN ap3 Judith Ramos RN RN vc1 Margaret Calloway RN RN ko1 Jackie Goetz RN RN Kristin Hahn [facility] Sarah Montoya
--- NOTE | 2024-04-03 20:20 | EDPHYS ---
Physician Documentation [facility] Name: Kota Stringer Age: 78 yrs Sex: Male : 1945 Arrival Date: 04/03/2024 Time: 15:38 Bed 6 Private MD: ED Physician Abundio Katz HPI: 04/03 16:45 This 78 yrs old Male presents to ER via Ambulatory with complaints of Bloating/gas, cp Vomiting, Cold/Shakes. 16:45 The patient presents with abdominal pain in the epigastric area. Onset: The cp symptoms/episode began/occurred intermittent episodes for past 4-5 months. The symptoms radiate to back. Associated signs and symptoms: Pertinent positives: nausea, vomiting, chills and episodes of shaking. The symptoms are described as intermittent. Severity of pain: in the emergency department the pain has resolved. Patient reports last episode of pain was this past weekend. Called office of primary care physician and he was told to go to ED for evaluation. Patient reports no current pain. Historical: - Allergies: 15:55 PENICILLINS; ap3 - PMHx: 15:55 adrenal cancer; immunotherapy; Irregular heart rate; melanoma; pituitary cancer; ap3 - PSHx: 15:55 melanoma removal; Cardiac Ablation; ap3 - Immunization history:: Client reports receiving the 2nd dose of the Covid vaccine. - Infectious Disease History:: Denies. - Social history:: Smoking status: Patient denies any tobacco usage or history of. ROS: 16:50 Constitutional: HX per HPI cp 16:50 All other systems are negative, Exam: 16:55 Constitutional: The patient appears in no acute distress, alert, awake, comfortable, cp non-diaphoretic, non-toxic, well developed, well nourished, 16:55 Head/Face: Normocephalic, atraumatic. cp 16:55 Eyes: Periorbital structures: appear normal, Pupils: equal, round, and reactive to light and accomodation, Extraocular movements: intact throughout, Conjunctiva: normal, no exudate, no injection, Sclera: no appreciated abnormality, Lids and lashes: appear normal, bilaterally, edema, is not appreciated, 16:55 ENT: External ear(s): are unremarkable, Nose: is normal, Mouth: Lips: moist, Oral mucosa: pink and intact, moist, Posterior pharynx: is normal, airway is patent, no erythema, no exudate, 16:55 Neck: ROM/movement: is normal, is supple, without pain, no range of motions limitations, 16:55 Chest/axilla: Inspection: normal, 16:55 Cardiovascular: Rate: normal, Rhythm: regular, 16:55 Respiratory: the patient does not display signs of respiratory distress, Respirations: normal, no use of accessory muscles, no retractions, labored breathing, is not present, Breath sounds: are clear throughout, no decreased breath sounds, no stridor, no wheezing, 16:55 Abdomen/GI: Inspection: abdomen appears normal, Bowel sounds: active, all quadrants, Palpation: soft, in all quadrants, mild abdominal tenderness, in the epigastric area, rebound tenderness, is not appreciated, involuntary guarding, is not appreciated, 16:55 Back: pain, is absent, ROM is normal, 16:55 Skin: no rash present. 16:55 Neuro: Orientation: to person, place \T\ time. Mentation: is normal, Motor: moves all fours, strength is normal, Sensation: is normal, 17:03 ECG was reviewed by the Attending Physician. cp Vital Signs: 15:52 BP 180 / 94; Pulse 71; Resp 17; Temp 98.1; Pulse Ox 100% ; Weight 79.38 kg; Height 5 ap3 ft. 9 in. ; 17:00 BP 140 / 74; Pulse 63; Resp 18; Pulse Ox 100% ; nj1 18:00 BP 142 / 74; Pulse 62; Resp 18; Pulse Ox 99% ; nj1 20:00 BP 152 / 76; Pulse 63; Resp 16; Pulse Ox 100% on R/A; jb4 15:52 Body Mass Index 25.84 (79.38 kg, 175.26 cm) ap3 MDM: 16:02 Patient medically screened. cp 17:00 Differential diagnosis: appendicitis, cholecystitis, Cholelithiasis, diverticulitis, cp non-specific abd pain, pancreatitis, Peptic Ulcer Disease, Perf. Duodenal Ulcer, Perf. Gastric Ulcer. 20:50 Data reviewed: vital signs, nurses notes, lab test result(s), EKG, radiologic studies, cp CT scan, and as a result, I will transfer patient. 21:00 ED course: consult with DR Helms, hospitalist at [facility] will accept as cp discussion. 04/03 16:37 Order name: CBC with Diff; Complete Time: 18:34 cp 04/03 18:34 Interpretation: Normal except: PLT 151. 04/03 16:37 Order name: CMP; Complete Time: 18:34 cp 04/03 18:34 Interpretation: Normal except: NA 135; K 3.3; GFR 82; AST 258; ALT 457; ALK 349; BILIT cp 5.8; ALB 3.1; A/G 0.9. 04/03 16:37 Order name: Lipase; Complete Time: 18:34 cp 04/03 18:36 Interpretation: Reviewed. 04/03 16:37 Order name: Urinalysis w/ reflexes; Complete Time: 17:56 cp 04/03 16:37 Order name: Troponin HS; Complete Time: 18:34 cp 04/03 16:37 Order name: Magnesium; Complete Time: 18:34 cp 04/03 17:39 Order name: CBC Smear Scan; Complete Time: 18:34 EDMS 04/03 19:08 Order name: PT-INR; Complete Time: 20:40 cp 04/03 19:08 Order name: Ptt, Activated; Complete Time: 20:40 04/03 19:08 Order name: Blood Culture Adult (2) cp 04/03 19:08 Order name: Lactate w/ 2H reflex if indic.; Complete Time: 20:40 04/03 20:46 Interpretation: Reviewed. 04/03 17:56 Order name: CT Abd/Pelvis - IV Contrast Only; Complete Time: 19:04 04/03 16:37 Order name: IV Saline Lock; Complete Time: 20:03 04/03 16:37 Order name: Labs collected and sent; Complete Time: 17:07 04/03 16:37 Order name: EKG - Nurse/Tech; Complete Time: 17:07 cp EC:03 Rate is 73 beats/min. Rhythm is regular. DE interval is normal. QRS interval is cp prolonged at 124 msec. QT interval is normal. T waves are Inverted in lead aVR. Interpreted by me. Reviewed by me. Administered Medications: No medications were administered Disposition: 04/04 07:06 Co-signature as Attending Physician, Abundio Katz MD I reviewed the patient's care rn provided by the Advanced Practice Provider and agree with the diagnosis and treatment plan. Disposition Summary: 04/03/24 20:19 Transfer Ordered Notes: Transfer Location: [facility] cp Reason: Higher level of care cp Condition: Stable cp Problem: new cp Symptoms: have improved cp Accepting Physician: DR Helms(04/03/24 21:52) vc1 Diagnosis - Abnormal results of liver function studies cp - Dilation of bilary tree cp - Epigastric pain cp Forms: - Medication Reconciliation Form cp - SBAR form cp Signatures: Dispatcher [employer] EDMS Abundio Kazt MD MD rn Jareth Bryant PA PA cp Yana Lantigua RN RN ap3 Judith Ramos RN RN vc1 Corrections: (The following items were deleted from the chart) 04/03 16:37 16:37 CBC+H.LAB.BRZ ordered. EDMS EDMS 16:37 16:37 COMPREHENSIVE METABOLIC PANEL+C.LAB.BRZ ordered. EDMS EDMS 16:37 16:37 LIPASE+C.LAB.BRZ ordered. EDMS EDMS 16:37 16:37 Urinalysis+U.LAB.BRZ ordered. EDMS EDMS 16:37 16:37 Troponin High Sensitivity+C.LAB.BRZ ordered. EDMS EDMS 16:37 16:37 MAGNESIUM+C.LAB.BRZ ordered. EDMS EDMS 19:08 19:08 PROTIME (+INR)+COAG.LAB.BRZ ordered. EDMS EDMS 19:08 19:08 PTT, ACTIVATED+COAG.LAB.BRZ ordered. EDMS EDMS 19:08 19:08 BLOOD CULTURE*+BA.LAB.BRZ ordered. EDMS EDMS 19:08 19:08 LACTATE+C.LAB.BRZ ordered. EDMS EDMS 20:59 20:19 doctor cp cp 21:52 20:59 DR Helms cp vc1 04/04 21:04 04/03 20:55 Data reviewed: vital signs, nurses notes, lab test result(s), EKG, cp radiologic studies, CT scan, and as a result, I will transfer patient, cp
[2024-04-03 22:21] VITALS: BP 152/76; TEMP 98.1; O2SAT 100
--- NOTE | 2024-04-06 17:02 | EKG ---
Test Date: 2024-04-03 Test Time: 16:56:54 [employer]: DAYDAY MEASUREMENT RESULTS: Intervals: Rate: 73 SC: 166 QRSD: 124 QT: 406 QTc: 447 Stewart: P: 77 SC: 166 QRS: -4 T: 28 INTERPRETIVE STATEMENTS: Sinus rhythm with premature atrial complexes Right bundle branch block Abnormal ECG Compared to ECG 03/05/2023 15:01:13 No significant changes Electronically Signed On 04-06-24 16:52:09 CDT by Carson Summers
== END 2024-04-03 21:52 | disposition short-term general hospital (02) ==
LOC: ER 15:38
DX: R94.5 Abnormal results of liver function studies (principal); K83.8 Other specified diseases of biliary tract; Z88.0 Allergy status to penicillin
CPT/HCPCS: 93005; 87040 ×2; 85025; 36415; 83735; 85610; 83605; 85730; 81003; 84484; 83690; 80053; 74177; 99283; Q9967